=== PATIENT | female | born 1945 | race Caucasian/White ===

== ENCOUNTER → 2017-04-04 | Outpatient (REF) | payer MEDICARE ==
[~2017-04-04] MED LIST: ALLO100T PO; BENI40TA28 PO; DEXA4TA PO; FEXO180T58 PO; MONT10TA2 PO; OMEP20CA3 PO; ROCA0.25 PO; SIMV20TA2 PO; TIZA4CAP3 PO; VITA100067 PO
[2017-04-04 22:19] LABS: BLOOD UREA NITROGEN 41 MG/DL (7-18); CREATININE FOR GFR 1.27 MG/DL (0.55-1.02); FOLATE 9.9 NG/ML; GLOMERULAR FILTRATION RATE 44.4 (>45); T UPTAKE 37 % (30-39); THYROXINE (T4) 13.1 UG/DL (4.5-12.0); TOTAL PROTEIN 8.2 GM/DL (6.4-8.2); VITAMIN B12 LEVEL 256 PG/ML
[2017-04-06 12:15] LABS: ALBUMIN 4.44 GM/DL (3.29-5.55); ALBUMIN % 54.1 % (55.8-66.1); GAMMA GLOBULIN % 17.7 % (11.1-18.8)
[2017-04-08 14:17] LABS: SJOGREN'S ANTI SS-A >8.0 AI (0.0-0.9); SJOGREN'S ANTI SS-B >8.0 AI (0.0-0.9); VITAMIN E LEVEL 13.6 mg/L (6.5-21.5)
== END ==
LOC: M LABNEURO 13:46
PROVIDERS: ATTEND Psychiatry & Neurology Neurology
DX: I10 Essential (primary) hypertension (principal); R20.9 Unspecified disturbances of skin sensation; E11.9 Type 2 diabetes mellitus without complications

== ENCOUNTER 2017-06-06 08:42 | Inpatient (IN) | payer MEDICARE, BC, OTHER ==
[2017-05-17 11:38] VITALS: BP 142/80
--- NOTE | 2017-05-26 10:17 | HPE ---
DATE OF PROPOSED ADMISSION: 06/06/2017 CHIEF COMPLAINT: Numbness and weakness in her left upper extremity. Minimal neck pain. ATTENDING PHYSICIAN: Dr. Lucas. HISTORY: This is a pleasant 71-year-old female patient with progressively worsening numbness and weakness in her left upper extremity to include balance difficulties and difficulties with normal day-to-day activities. She feels her symptoms started about 5 months ago and failed to improve with conservative management. She was noted to have severe spinal stenosis and myelomalacia on her cervical MRI. It was recommended that she undergo a posterior cervical decompression and fusion from C3-C6 by Dr. Lucas. Her spinal stenosis on her MRI was most notable from C3 down to C6. X-rays notable for multilevel degenerative changes most significantly from C3-C6. There is a very minimal anterolisthesis at C5-6. She has elected for surgery for continued symptoms. Dr. Lucas consented her for a posterior cervical decompression and fusion C3-C6. Medical optimization by Mr. Hughes, that is not present for review. ALLERGIES: TYLENOL WITH CODEINE that causes her nausea and vomiting. MEDICAL HISTORY: Includes: Cervical spinal stenosis. Stage III kidney failure. Gout. Elevated cholesterol. Mild mental retardation. Gastric reflux disease. Hypertension. CURRENT MEDICATIONS: - dexamethasone 4 mg one tablet three times a day - tizanidine 4 mg one tablet up to four times a day as needed - Prilosec 20 mg one tablet once per day - Benicar 40/12.5 mg one tablet once per day - calcitriol 0.25 mcg one tablet once per day - fexofenadine 180 mg one tablet once per day - allopurinol 100 mg one tablet every day - montelukast 10 mg one tablet once per day - Zocor 20 mg one tablet at bedtime SOCIAL HISTORY: She does not smoke. She does not use alcohol. She is disabled. FAMILY HISTORY: Noncontributory. REVIEW OF SYSTEMS: Denies any current fevers or chills. Denies chest pain, shortness breath or cough. Denies difficulty breathing. Denies abdominal pain. Denies nausea or vomiting. Notes persistent weakness in her left upper extremity, difficulty with any use of her left upper extremity, numbness down her left upper extremity into her left hand. Very minimal neck pain. Also notes balance difficulties and notes she is dropping items. Denies any recent upper respiratory infection (URI) or urinary tract infection (UTI) symptoms. Exam today reveals alert well-nourished, well-developed female patient who holds her left arm in a sort of flexed external rotated position. There is very limited motion of the left upper extremity. Her gait is not wide-based though she does struggle with tandem walking on exam. Her mood and affect are appropriate for the situation. She does grimace getting on and off the exam table. Spurling's is negative on exam. There is some very minimal tenderness at the base of the cervical spine but otherwise the skin is intact. No erythema, edema or ecchymosis. Deep tendon reflexes are 1 at the biceps bilaterally, 3 at the triceps bilaterally, 3 bilaterally at the knees, 2 at the ankles bilaterally. There is four beats of clonus on the left, two beats of clonus on the right. Positive Karen's on the left upper extremity. There is decreased light touch along the dorsum of the left hand to include all the fingers of the hand. There is also decreased light touch along the volar aspect of the forearm. Lungs are clear to auscultation without rales or wheeze. Heart: Regular rate and rhythm. Abdomen: Bowel sounds are present. Height 148 pounds, height 58 inches, temperature 96.8, blood pressure 120/78, respirations 14, pulse 64. IMPRESSION: Severe spinal stenosis of the cervical spine from C3-C6 as well as myelomalacia of the spinal cord of the cervical spine. PLAN: Dr. Lucas has her consented for posterior cervical decompression and fusion from C3-C6.
[~2017-06-06] VITALS: Ht 149.9 cm; Wt 66.2 kg
[2017-06-06] MEDS ORDERED: LR 1,000 ML IV ONE (09:00)
[2017-06-06] MEDS ORDERED: methylPREDNISolone 500 MG, VIAL MATE ADAPTER 1 EACH in D5W 250 ML IV ONE (09:00)
[2017-06-06] MEDS ORDERED: PERCOCET 5MG/325MG TAB PO ONE (09:00)
[2017-06-06] MEDS ORDERED: CelecoXIB (CeleBREX) 100 MG CAP PO ONE (09:00)
[2017-06-06] MEDS ORDERED: LIDOCAINE 1% MDV 20ML VIAL SQ PRN (09:00)
[2017-06-06] MEDS ORDERED: PROPOFOL 200 MG/20 ML VIAL As Ordered ONE (09:44)
[2017-06-06] MEDS ORDERED: fentaNYL 250 MCG/5 ML INJECTION (J3010) As Ordered ONE (09:44)
[2017-06-06] MEDS ORDERED: MIDAZOLAM INJ 2 MG/2 ML VIAL (J2250) As Ordered ONE (09:44)
[2017-06-06] MEDS ORDERED: dexameTHASONE 4 MG/ML 1ML VIAL (J1100) As Ordered ONE (09:44)
[2017-06-06] MEDS ORDERED: ROCURONIUM BROMIDE 50 MG/5 ML VIAL As Ordered ONE ×2 (09:44→13:52)
[2017-06-06] MEDS ORDERED: LIDOCAINE 2% INJ 100 MG/5 ML SDV (FOR ANES.) As Ordered ONE (09:44)
[2017-06-06] MEDS ORDERED: ceFAZolin 2 GM/D5W 50 ML IV BAG (J0690 PER 500MG) As Ordered ONE ×2 (11:17→15:27)
[2017-06-06] MEDS ORDERED: HYDROCORTISONE 100 MG/2 ML VIAL (J1720) As Ordered ONE (11:36)
[2017-06-06] MEDS ORDERED: BUPIVACAINE HCL 0.5% 10 ML VIAL As Ordered ONE (11:46)
[2017-06-06] MEDS ORDERED: THROMBIN SOLN 20,000 UNITS KIT As Ordered ONE (11:46)
[2017-06-06] MEDS ORDERED: BUPIVACAINE/EPIN 0.25% 30 ML VIAL As Ordered ONE (11:46)
[2017-06-06] MEDS ORDERED: VANCOMYCIN HCL 500 MG/10 ML VIAL (J3370) As Ordered ONE (11:46)
[2017-06-06] MEDS ORDERED: BACITRACIN PWD 50,000 UNITS VIAL As Ordered ONE ×2 (11:47→16:20)
[2017-06-06] MEDS ORDERED: BUPIVACAINE LIPOSOME/PF 1.3% 20 ML VIAL (13.3MG/ML)(EXPAREL) As Ordered ONE (11:47)
[2017-06-06] MEDS ORDERED: ePHEDrine SULFATE 25 MG/5 ML(5MG/ML) SYRINGE As Ordered ONE ×2 (13:43→15:46)
[2017-06-06] MEDS ORDERED: ONDANSETRON 4MG/2ML VIAL (J2405) As Ordered ONE ×2 (14:40→19:37)
[2017-06-06] MEDS ORDERED: HYDROmorphone HCL 2 MG/ML 1ML VIAL (J1170) As Ordered ONE (14:40)
[2017-06-06] MEDS ORDERED: GLYCOPYRROLATE INJ 0.2 MG/ML 2 ML VIAL As Ordered ONE (14:47)
[2017-06-06] MEDS ORDERED: NEOSTIGMINE 10 MG/10 ML VIAL (J2710) As Ordered ONE (14:47)
[2017-06-06] MEDS ORDERED: PHENYLEPHRINE INJ 10MG/ML VIAL (J2370) As Ordered ONE (14:59)
--- NOTE | 2017-06-06 17:23 | REP ---
Cervical spine series: Limited study two views. History: Intraoperative films. 10 seconds of fluoroscopy time is reported. Findings: A sequence of two last image hold fluoroscopic spot radiographs of the cervical spine are presented. The patient is status post posterior element fusion from C3 through C6 bilaterally. Laminectomies have apparently been performed at these levels as well. Signed by Jose Guadalupe León MD 06/07/2017 11:17 A
[2017-06-06] MEDS ORDERED: HYDROmorphone HCL 1 MG/ML SYRINGE (J1170) IV PRN ×3 (18:30)
[2017-06-06] MEDS ORDERED: LR 1,000 ML IV SCH (18:30)
[2017-06-06] MEDS ORDERED: ACETAMINOPHEN TAB 650MG DOSE (2X325MG) PO PRN (18:30)
[2017-06-06] MEDS ORDERED: fentaNYL 100 MCG/2 ML INJECTION (J3010) IV PRN (18:30)
[2017-06-06] MEDS ORDERED: ONDANSETRON 4MG/2ML VIAL (J2405) IV PRN (18:30)
[2017-06-06] MEDS ORDERED: PERCOCET 5MG/325MG TAB PO PRN ×2 (18:30)
[2017-06-06] MEDS ORDERED: tiZANidine 4 MG TAB PO PRN (18:30)
[2017-06-06] MEDS ORDERED: METOCLOPRAMIDE INJ 10MG/2ML VIAL (J2765) IV PRN (18:30)
[2017-06-06] MEDS ORDERED: METOCLOPRAMIDE INJ 10MG/2ML VIAL (J2765) As Ordered ONE (19:42)
[2017-06-06 20:30] VITALS: BP 161/74
[2017-06-06 21:00] VITALS: BP 121/69
[2017-06-06 22:00] VITALS: BP 120/90
[2017-06-06] MEDS: SIMVASTATIN 20 MG TAB PO SCH (22:08)
[2017-06-06] MEDS: GABAPENTIN 100 MG CAP PO SCH (22:08)
[2017-06-06] MEDS: MONTELUKAST 10 MG TAB PO SCH (22:08)
[2017-06-06] MEDS: D5W/LR 1,000 ML IV SCH (22:09)
[2017-06-06 23:00] VITALS: BP 120/66
[2017-06-07] VITALS: BP 136/70
[2017-06-07] MEDS: PERCOCET 5MG/325MG TAB PO PRN ×4 (00:06→23:28)
[2017-06-07 01:00] VITALS: BP 130/68
[2017-06-07 06:00] VITALS: BP 134/64
[2017-06-07] MEDS: D5W/LR 1,000 ML IV SCH ×2 (06:51→13:43)
[2017-06-07] MEDS: FEXOFENADINE 60 MG TAB PO SCH (08:44)
[2017-06-07] MEDS: METAMUCIL (PSYLLIUM) PACKET PO SCH (08:44)
[2017-06-07] MEDS: hydroCHLOROthiazide 12.5 MG CAPSULE PO SCH (08:45)
[2017-06-07] MEDS: OLMESARTAN MEDOXOMIL 20 MG TAB (BENICAR) PO SCH (08:45)
[2017-06-07] MEDS: GABAPENTIN 100 MG CAP PO SCH ×3 (08:45→20:07)
[2017-06-07] MEDS: ALLOPURINOL 100 MG TAB PO SCH (08:46)
[2017-06-07] MEDS: OMEPRAZOLE 20 MG CAP PO SCH (08:46)
[2017-06-07 10:00] VITALS: BP 129/66
[2017-06-07 14:00] VITALS: BP 130/60
[2017-06-07] MEDS: MONTELUKAST 10 MG TAB PO SCH (20:07)
[2017-06-07] MEDS: SIMVASTATIN 20 MG TAB PO SCH (20:07)
[2017-06-07 22:00] VITALS: BP 160/79
--- NOTE | 2017-06-07 23:28 | RO ---
DATE OF PROCEDURE: 06/06/2017 PREOPERATIVE DIAGNOSIS: Cervical spinal stenosis with myelopathy. POSTOPERATIVE DIAGNOSIS: Cervical spinal stenosis with myelopathy. OPERATIVE PROCEDURE: Cervical laminectomy and fusion posterior C3-C6. Specific portions of the procedure as follows: C3 laminectomy for decompression of the thecal sac and nerve roots, C4 laminectomy additional level, C5 laminectomy additional level, C6 laminectomy additional level, posterior fusion C3-4, posterior fusion C4-5 additional level, posterior fusion C5-6 additional level, posterior segmental instrumentation C3, C4, C5 and C6, harvest of local autograft for spine surgery, application removal of [place] tongs for cervical positioning for posterior cervical spine surgery. SURGEON: Dr. Vinny Lucas HIGHWAY RESEARCH ENGINEER: Guillermo Chacko PA-C ANESTHESIA: General endotracheal. ESTIMATED BLOOD LOSS: 200 mL REPLACED: With crystalloid. COMPLICATIONS: None. COMPONENTS USED: K2M lateral mass screw fixation system/screws and the appropriate connecting rich hardware and end caps. INDICATION FOR SURGERY: Cervical myelopathy, gait disorder and left upper extremity neuropathic pain. Consent reviewed in detail with the patient as well as relatives. The consent had involved a sam discussion of the pathology involved, the procedure proposed, alternatives including doing nothing, risks including but not limited to pain, failure, incomplete relief, need for additional surgery, paralysis, , infection and failure to improve symptoms, specifically. The patient agrees to proceed with surgery. OPERATIVE COURSE: Identified in the holding area, site, side verified; brought to the operating room. Once general endotracheal anesthesia was administered, Mr. Chacko and Wanda prepped the patient's head for application of the [place] tongs. We utilized the radiolucent [place] tongs and the Robert table Escobedo tongs system. The [place] tongs were applied to approximately 50 pound pressure on the [place] tong tensioning device. The pair of pins placed on the patient's left side, single pin placed on the patient's right side at the appropriate bony landmarks. Next, once the [place] tongs were secured Mr. Chacko and Wanda participated in the flip procedure to the Robert frame. I controlled the head while OR personnel and Mr. Chacko assisted with the flip. The patient was flipped from the supine to the prone position on the [place] frame. While the patient's positioning was adjusted by Mr. Chacko I held the patient's neck in neutral position and we secured the patient's [place] tongs to the Robert frame. We then further adjusted positioning of the patient's arms and taped the shoulders at the side carefully. Finally once positioning is complete, we paused to time-out and verified garcia points in positioning. Next, we brought in the C-arm and verified positioning with the lateral fluoroscopy. The patient was appropriately lordotic and not excessively flexed or hyperextended. Next, the patient had a preoperative dose of the methylprednisolone as well as antibiotic. Next, the patient's posterior cervical spine was prepared by removing some hair from the posterior aspect of the occiput. Next, once I and the senior specialist were comfortable with the patient's positioning, she was then sterilely prepped and draped for in the usual fashion for exposure of the posterior cervical spine for decompressive laminectomy. Next, once this was accomplished we began the procedure. Initially I stood on the patient's right, Mr. Chacko on the patient's left. The incision was outlined with a marking pen based on palpation of the spinous processes and infiltrated with 0.25% Marcaine with epinephrine. I utilized headlamp and 3.5 loupe magnification for the procedure. Next, the incision was made with a #10 blade knife developed down through skin and subcuticular tissues while in the nuchal fascia. The dissection continued to the posterior aspect of the spinous processes of C5, C6 and C7 which were exposed. Next, we obtained a cross-table lateral cervical image to verify our level at above and below cranial and caudal to the spinous processes C6. Next, once this was accomplished I marked the spinous process of C7 as the inferior-most aspect of the incision using Leksell/Franklin-Levy. I then continued the dissection exposing along the spinal lamina of C6 and working cranially through the lamina of C3. This was accomplished on the patient's left side, then I switched sides and accomplished the same dissection on the patient's right side. Mr. Chacko utilizing bipolar cautery while I did the dissection to maintain hemostasis. Next, ____CUT OFF!!!!!!!!!!!
[2017-06-08 06:00] VITALS: BP 152/81
[2017-06-08] MEDS: PERCOCET 5MG/325MG TAB PO PRN (06:57)
[2017-06-08] MEDS: FEXOFENADINE 60 MG TAB PO SCH (09:07)
[2017-06-08] MEDS: METAMUCIL (PSYLLIUM) PACKET PO SCH (09:07)
[2017-06-08 09:08] VITALS: BP 152/81
[2017-06-08] MEDS: hydroCHLOROthiazide 12.5 MG CAPSULE PO SCH (09:08)
[2017-06-08] MEDS: ALLOPURINOL 100 MG TAB PO SCH (09:08)
[2017-06-08] MEDS: GABAPENTIN 100 MG CAP PO SCH (09:08)
[2017-06-08] MEDS: OMEPRAZOLE 20 MG CAP PO SCH (09:08)
[2017-06-08] MEDS: OLMESARTAN MEDOXOMIL 20 MG TAB (BENICAR) PO SCH (09:08)
--- NOTE | 2017-06-15 17:30 | DSES ---
DATE OF ADMISSION: 06/06/2017 DATE OF DISCHARGE: 06/08/2017 CHIEF COMPLAINT: Left upper extremity numbness and weakness with minimal neck pain. OTHER DIAGNOSES: 1. Stage III kidney disease. 2. Gout. 3. Hyperlipidemia. 4. Gastroesophageal reflux disease. 5. Hypertension. 6. Mild mental retardation. DISCHARGE DIAGNOSIS: Left upper extremity numbness and tingling, status post cervical laminectomy and fusion procedure. HISTORY: Patient is a 71-year-old female with progressively worsening numbness, tingling, and weakness in her left upper extremity. It is causing her balance difficulties and difficulties with activities of daily living. Symptoms started approximately 5 months ago and failed to improve with conservative management. She was noted to have severe spinal stenosis and myelomalacia on her cervical MRI. She consented for an elective posterior cervical decompression and fusion with Dr. Lucas. OPERATION PERFORMED: Cervical laminectomy and fusion posteriorly from C3-6. HOSPITAL COURSE: The patient underwent a posterior cervical laminectomy and fusion from C3-6 for cervical spinal stenosis and myelopathy. Surgery was under general anesthesia and was without complication. Patient's hospital course was uneventful. She was discharged on oral pain medications and will resume her preoperative medications and diet. She will wear her cervical collar as recommended and use her thromboembolic deterrent (FINA) stockings for 30 days postoperatively for deep vein thrombosis. Patient will followup in our office in approximately 3 days for wound check. She is encouraged to contact our office sooner if there is any increased pain, redness, drainage, fever greater than 101 degrees, bilateral upper extremity symptoms, or any other concerns. Please see medical record for additional details. CECI
== END 2017-06-08 11:29 | DRG 472 ==
LOC: M OR 08:42 → M MS5PR 20:10
PROVIDERS: ADMIT Orthopaedic Surgery; ATTEND Orthopaedic Surgery
PROC: 0RG Upper Joints, Fusion (ICD-10-PCS; principal; 2017-06-06 12:07)
DX: M48.02 Spinal stenosis, cervical region (principal); G95.89 Other specified diseases of spinal cord; N18.3 Chronic kidney disease, stage 3 (moderate); M10.9 Gout, unspecified; R26.89 Other abnormalities of gait and mobility; J30.9 Allergic rhinitis, unspecified; E53.8 Deficiency of other specified B group vitamins; M54.5 Low back pain; E78.00 Pure hypercholesterolemia, unspecified; F70 Mild intellectual disabilities; K21.9 Gastro-esophageal reflux disease without esophagitis; I12.9 Hypertensive chronic kidney disease with stage 1 through stage 4 chronic kidney disease, or unspecified chronic kidney disease; Z79.899 Other long term (current) drug therapy

== ENCOUNTER 2017-06-08 10:52 | Inpatient (IN) | payer MEDICARE, BC, OTHER ==
[~2017-06-08] VITALS: Ht 149.9 cm; Wt 67.8 kg
[2017-06-08 12:00] VITALS: BP 127/88
--- NOTE | 2017-06-08 12:50 | CR.PDOC ---
[facility] Consultation Consultation CONSULTATION REPORT FOR: Dr Mcgill REASON FOR CONSULTATION: Medical Management DATE OF VISIT: 06/08/17 ATTENDING: Dr. Marv Mendez PCP: Sana SINCLAIR HPI: 71year oldF with h/o cervical stenosis, S/P Cervical decompression surgery 06/06/[address] Lucas, orthopedic surgery. Pt is transferred 06/08/17 to the care of Dr Nikhil LAND. No acute medical complaints today. Pt states pain is controlled. Denies any fevers, chills, weakness, fatigue, Headache, Chest Pain, Shortness of breath, cough, palpitations, abdominal pain, N/V/D or changes in bowel or bladder habits. PMHx: cervical stenosis chronic pain/chronic neck pain HTN GERD Allergic rhinitis Gout Asthma CKD3 Mild MR HLD PSHX: Cervical decompression surgery 06/06/17, Dr Lucas. SOCHX: Resides in: [place] Marital Status: single Employment: disabled Tobacco use: denies ETOH: denies Illicit Drugs: Denies ROS: As noted in HPI, otherwise 11pt ROS of systems reviewed and unremarkable. PE: GEN: 71yoF, appears stated age. Well-nourished, well developed. No acute distress. Alert and oriented x 3. Pleasant, interactive. HEENT: Normocephalic, atraumatic. Sclera are nonicteric. Conjunctiva without injection. Nose midline. No facial asymmetry. Moist mucous membranes. Pharynx pink and moist. CHEST: Regular rate and rhythm, +S1, +S2 LUNGS: Clear to auscultation bilaterally. No wheezes, rales, or rhonchi. Breathing appears symmetric and easy. Patient is speaking in full sentences. No accessory muscle use. ABD: Round, soft, non-tender, non-distended. +Bowel sounds throughout. No rebound or guarding. EXT: Pulses 2+ bilaterally dorsalis pedis and radial. No lower extremity edema appreciated. SKIN: [place], dry, warm. No rashes. NEURO: Pt wearing [place] cervical collar. A&P: 71year oldF with h/o cervical stenosis, S/P Cervical decompression surgery 06/06/[address] Lucas, orthopedic surgery. Pt is transferred 06/08/17 to the care of EMERY, Dr Mcgill. 1. Cervical stenosis/Cervical decompression surgery 06/06/[address] Lucas. Mgmt as per Orthopedic surgery. PT/OT as per Dr Nikhil LAND. Pain control as per Dr Nikhil LAND. Bowel care as per Dr Nikhil LAND. DVT prophylaxis. As per Dr Nikhil LAND. 2. HTN. HCTZ 12.5 mg daily. CMP pending. Benicar is on hold at this time. Monitor BP, may need to add back ARB. 3. GERD. Continue PPI. 4. Allergic rhinitis. Chloe/Singulair. 5. CKD3. Baseline appears to be 1.2-1.3. CMP pending. Monitor. 6. Mild MR. Continue supportive care. 7. Gout. Continue Allopurinol. 8. HLD. Continue Zocor. Thank you for your consultation. We will continue to follow along with you. Vital Signs/I&O pending Laboratory Data Labs 24H CBC/CMP/UA pending. Allergies Coded Allergies: Codeine (Verified Adverse Reaction, Mild, n/v, 06/06/17) Home Medications Scheduled (Benicar Hct 40-12.5 mg) 1 Tab Tab, 1 TAB PO DAILY, (Reported) Allopurinol (Allopurinol) 100 Mg Tab, 100 MG PO DAILY, (Reported) Calcitriol (Rocaltrol) 0.25 Mcg Cap, 0.25 MCG PO DAILY, (Reported) Dexamethasone (Dexamethasone) 4 Mg Tab, 4 MG PO Q8H, (Reported) 7-3-11 Fexofenadine Hydrochloride (Fexofenadine HCl) 180 Mg Tab, 180 MG PO DAILY, ( Reported) Montelukast Sodium (Montelukast Sodium) 10 Mg Tab, 10 MG PO QPM, (Reported) Omeprazole (Omeprazole) 20 Mg Cap, 20 MG PO DAILY, (Reported) Simvastatin (Simvastatin) 20 Mg Tab, 20 MG PO QPM, (Reported) Tizanidine Hydrochloride (Tizanidine HCl) 4 Mg Cap, 4 MG PO QPM, (Reported) Vitamin D (Vitamin D) 1,000 Unit Cap, 2,000 UNIT PO DAILY, (Reported) Anna Taylor Jun 08, 2017 12:50
[2017-06-08] MEDS: METAMUCIL (PSYLLIUM) PACKET PO SCH (13:48)
[2017-06-08] MEDS: OMEPRAZOLE 20 MG CAP PO SCH (13:48)
[2017-06-08] MEDS: GABAPENTIN 100 MG CAP PO SCH ×2 (14:56→21:47)
[2017-06-08 16:00] VITALS: BP 130/81
--- NOTE | 2017-06-08 17:03 | PMRHPE ---
DATE OF ADMISSION: 06/08/2017 REASON FOR ADMISSION: Rehabilitation of incomplete quadriparesis status post decompression of C3-6 cervical levels with C3-6 cervical laminectomy and multiple-level root decompressions on 06/06/2017 for cervical spinal stenosis with myopathy. HISTORY OF PRESENT ILLNESS: Patient is a 71-year-old white female who is right-handed with mental retardation that is mild but has been developing progressive pain in the neck and down the upper extremities and weakness for 5 months. On evaluation, she was found to have cervical compression and radiculopathy and was assessed by Dr. Lucas who felt that decompressive surgery was her best option. Patient has now had the decompression surgery and fusion; however, during the time of pain, patient has had progressive problems with bladder control, having more and more retention, suggestive that she does have cervical compression in more of a central cord fashion with principal deficits in the upper extremities but some balance and bladder deficits in the lower regions. Patient does have a caregiver; however, right now while she does have good ambulation, her normal level of self-care skills are markedly reduced, and patient had participated in physical and occupational therapy evaluations and shows good motivation and willingness to participate in acute intensive rehabilitation and was admitted today to the acute rehabilitation unit for neurorehabilitation of cervical cord injury. PAST MEDICAL HISTORY: Includes: 1. Cervical stenosis. 2. Stage III chronic kidney disease. 3. Gout. 4. Dyslipidemia. 5. Mild mental retardation. 6. Gastric reflux disease. 7. Hypertension. ALLERGIES: She has medication reactions to TYLENOL WITH CODEINE, causing nausea and vomiting but no rash, shortness of breath, or swelling. No other medication adverse reactions or allergic responses to medications or other substances are known for this patient. SOCIAL HISTORY: Patient living with caregiver. Was fairly independent in her basic activities of daily living (ADLs) and mobility and recreationally liked to go bowling. She does not smoke. She does not drink alcohol. Due to mental deficits is disabled. FAMILY HISTORY: Involves no related illnesses. MEDICATIONS ON ADMISSION TO THE REHABILITATION UNIT: - allopurinol 100 mg daily for gout prevention - Chloe 180 mg daily for allergies to environmental allergens - hydrochlorothiazide 12.5 mg daily for hypertension and fluid control - Singulair 10 mg at bedtime for asthma - simvastatin 20 mg at bedtime for cholesterol control - gabapentin 100 mg every 8 hours for neurogenic pain - tizanidine 4 mg every 6 hours as needed for spasms - Dulcolax 5 mg tablet daily as needed for constipation. Patient without bowel movements since admission, though this is day 3. - Tylenol 650 mg every 6 hours as needed for pain or fever - oxycodone 5 mg every 4 hours as needed moderate to severe pain - omeprazole 20 mg by mouth daily for gastroesophageal reflux disease (GERD) - Metamucil one packet daily for bowel management REVIEW OF SYSTEMS: Notable for some mild numbness, greater on the left than the right, and weakness in the upper extremities, greater on the left than the right. Also for the urinary retention and current constipation; otherwise negative. PHYSICAL EXAMINATION: GENERAL: Short, obese, [id number] white female who looks slightly younger than stated age of 71. Patient 4 feet 11 inches and 66.2 kg. VITAL SIGNS: Temperature is 98.2, blood pressure 127/88, pulse 65, respirations 18, and pulse oximetry is 96% on room air. HEENT: Normocephalic, atraumatic. Pupils are equal, round, and reactive to light and accommodation. Face shows normal symmetry. Nares are patent. Hearing is good. No dysarthria on speech. NECK: In an [place] cervical collar, showing no significant distress at this time. LUNGS: Clear in all lui to auscultation. CORONARY: Shows a regular rate and rhythm with normal S1, S2 and 2/4 radial pulses. ABDOMEN: Obese with bowel sounds present in all quadrants No palpable tenderness or masses. EXTREMITIES: With functional range of motion in bilateral upper and lower extremities. NEUROLOGIC: Patient is alert and oriented to self, place, and in general time and situation, though she has a somewhat childlike and concrete demeanor and speech pattern. She is pleasant and cooperative. Memory was not tested. Motor shows 3-3+/5 bilateral upper extremities and 4-5/5 in the lower extremities. Patient with decreased light touch in bilateral upper extremities. Seems to be intact in the lower extremities. Tone is within normal limits in bilateral upper and lower extremities. LABORATORY DATA: Has not been completed. Further testing tomorrow with CBC with differential and comprehensive metabolic panel. ASSESSMENT/PLAN: 1. Rehabilitation of what appears to be a fairly incomplete and more of a central cord pattern, C4 quadriparesis with very little involvement in the lower extremities; however, patient clearly having urinary retention problems, as she is able to start urination but is unable to get out the last 400 mL this evening. Also, this explained some of the patient's previously noted balance and ambulation problems. I feel patient needs neuromuscular facilitation of bilateral upper extremities along with balance training, overall endurance and mobility training, but most importantly focus on ADLs and possible use of adaptive garments and equipment to perform ADLs. At this time I do not feel speech language pathology evaluation is needed; however, we will assess patient team-woodall, and further evaluation of speech needs will be considered going forward. Patient needs to be at least minimal assist to standby for return to home with her caregiver. I am anticipating patient will require about 14 days to achieve that. 2. Cervical wound healing. At this time patient is doing well. Will continue with cervical collar, and I have consulted orthopedics to help with ongoing care. Will keep the collar on at all times except when supported in bed to allow some cleaning of the neck and pads of the collar. 3. Spasms secondary to spinal cord. Patient will continue on the as-needed Zanaflex. 4. Deep vein thrombosis (DVT) prophylaxis. Will go ahead with thromboembolic deterrent (FINA) hose and sequential compression stockings and try and keep patient hydrated. Consideration of aspirin versus other anticoagulants will be considered with discussion of orthopedics. 5. Atherosclerotic cardiovascular disease, including hypertension and hyperlipidemia. At this time will continue with simvastatin, hydrochlorothiazide. Return of patient to using her previous medications will be considered. Hospitalist consult has been sent to assist in this and other medical problems. 6. Asthma. Patient will on the Singulair. We will observe respiratory status. Oxygen has been ordered, but principally at this point patient seems to be doing well, and focus will be on pulmonary hygiene, including using incentive spirometry. POSTADMISSION PHYSICIAN EVALUATION: I feel patient is consistent with chart review and preadmission screening and does have a number of problems, including the urinary retention, and may require medication such as an alpha olga to assist with that, but for now will try to do more mechanical-type training or consider possible use of Urecholine, which is often very helpful for impaired bowel and bladder function in this type of patient. I do feel patient is highly motivated to participate in and will, I believe, benefit from therapy, especially in light of decompression, and I anticipate her returning to her prior community living situation with caregiver. Her prognosis is fair to good. Estimated length of stay is 14 days. Time spent on chart review, history and physical, and documentation is greater than 70 minutes.
[2017-06-08] MEDS: oxyCODONE 5MG TAB PO PRN (17:53)
[2017-06-08 21:00] VITALS: BP 142/70
[2017-06-08] MEDS: MONTELUKAST 10 MG TAB PO SCH (21:47)
[2017-06-08] MEDS: SIMVASTATIN 20 MG TAB PO SCH (21:47)
[2017-06-09 06:00] VITALS: BP 126/64
[2017-06-09] MEDS: GABAPENTIN 100 MG CAP PO SCH ×3 (06:13→21:17)
[2017-06-09 08:29] LABS: BASO % 0.3 % (0.0-1.0); EOS % 0.6 % (0.0-3.0); IMMATURE GRANULOCYTE % 2.3 % (0-0); LYMPH # 0.7 10^3/uL (1.5-4.5); LYMPH % 9.5 % (24.0-44.0); MEAN CORPUSCULAR HEMOGLOBIN 29.6 pg (27.0-33.0); MEAN CORPUSCULAR HGB CONC 32.8 g/dl (32.0-36.5); MEAN CORPUSCULAR VOLUME 90.2 fl (80.0-96.0); MONO # 0.4 10^3/uL (0.0-0.8); MONO % 5.2 % (0.0-5.0); NEUTROPHILS # 5.7 10^3/uL (1.8-7.7); NEUTROPHILS % 82.1 % (36.0-66.0); PLATELET COUNT, AUTOMATED 191 10^3/uL (150-450); RED CELL DISTRIBUTION WIDTH 13.9 % (11.5-14.5)
[2017-06-09 08:50] LABS: ALBUMIN 1.9 GM/DL (3.2-5.2); ALBUMIN/GLOBULIN RATIO 0.61 (1.00-1.93); ALKALINE PHOSPHATASE 35 U/L (45-117); ALT/SGPT 12 U/L (12-78); ANION GAP 6 MEQ/L (8-16); AST/SGOT 18 U/L (7-37); BILIRUBIN,TOTAL 0.4 MG/DL (0.2-1.0); BLOOD UREA NITROGEN 21 MG/DL (7-18); CARBON DIOXIDE LEVEL 31 MEQ/L (21-32); CHLORIDE LEVEL 103 MEQ/L (98-107); CREATININE FOR GFR 0.76 MG/DL (0.55-1.02); GLOMERULAR FILTRATION RATE > 60.0 (>45); GLUCOSE, FASTING 80 MG/DL (80-110); POTASSIUM SERUM 3.5 MEQ/L (3.5-5.1); SODIUM LEVEL 140 MEQ/L (136-145)
[2017-06-09] MEDS: FEXOFENADINE 60 MG TAB PO SCH (08:53)
[2017-06-09] MEDS: OMEPRAZOLE 20 MG CAP PO SCH (08:53)
[2017-06-09] MEDS: hydroCHLOROthiazide 12.5 MG CAPSULE PO SCH (08:53)
[2017-06-09] MEDS: METAMUCIL (PSYLLIUM) PACKET PO SCH (08:53)
[2017-06-09] MEDS: ALLOPURINOL 100 MG TAB PO SCH (08:53)
[2017-06-09] MEDS: ACETAMINOPHEN TAB 650MG DOSE (2X325MG) PO PRN (09:53)
[2017-06-09] MEDS: oxyCODONE 5MG TAB PO PRN (12:11)
--- NOTE | 2017-06-09 13:33 | IPNPDOC ---
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 On evaluation, she was found to have cervical compression and radiculopathy and was assessed by Dr. Lucas who felt that decompressive surgery was her best option. Patient has now had the decompression surgery and fusion; however, during the time of pain, patient has had progressive problems with bladder control, having more and more retention, suggestive that she does have cervical compression in more of a central cord fashion with principal deficits in the upper extremities but some balance and bladder deficits in the lower regions. Patient notes sleeping well last night and not having a significant pain at this time. Patient with no bowel movements 5 days, so we will try encourage that this evening. ALLERGIES: See Below MEDICATIONS: Reviewed, see below. OBJECTIVE: VITAL SIGNS: Please see below. PHYSICAL EXAMINATION: GENERAL: Short obese middle-aged white female who looks slightly less than stated age of 71. Patient is pleasant cooperative and in good spirits. She is oriented to self, place and general time and situation. HEENT: Normocephalic/atraumatic. CARDIOVASCULAR: Regular rate and rhythm with normal S1 and S2. 2/4 bilateral radial pulses. LUNGS: All lui clear to auscultation. ABDOMEN: I'm with normal bowel sounds in all quadrants. NEUROLOGICAL: Diminished sensorimotor function of bilateral upper extremity left more than right. SKIN: Posterior cervical incision under dressing without significant drainage or a signs of inflammation. LABORATORY DATA: Reviewed. Please see below. MICROBIOLOGY: Please see below. IMAGING: No new imaging. DVT prophylaxis ordered?: FINA hose and sequential compression stockings. ASSESSMENT AND PLAN: 1. Rehabilitation of approximately C4 central cord syndrome: Patient with radicular elements but principally involvement of bilateral upper extremity but also secondary GI/ effects. I will go ahead and worked is improve bowel and bladder function along with the team working on neuromuscular facilitation of bilateral upper extremities and overall balance, endurance, ADL training. 2. Constipation: Will use milk of magnesia and do blocks but also start Urecholine. 3. Anemia: Patient with moderate anemia with H&H of 10.0 and 30.5% today on 06/09. We will continue to follow this along with heart rate and blood pressure. 4. Nutrition: Albumin is severely low at 1.9. Need to focus on maintaining good nutrition and trying to improve patient's protein stores. TIME SPENT: Chart Review, examination and documentation require greater than 25 minutes. Allergies Coded Allergies: Codeine (Verified Adverse Reaction, Mild, n/v, 06/06/17) Vital Signs Vital Signs Date Time Temp Pulse Resp B/P (MAP) Pulse Ox O2 Delivery O2 Flow Rate FiO2 06/09/17 12:41 18 06/09/17 12:11 Room Air 06/09/17 06:00 97.2 88 126/64 (84) 98 Laboratory Data CBC/BMP Laboratory Tests 06/09/17 07:57 Red Blood Count 3.38 L, Mean Corpuscular Volume 90.2, Mean Corpuscular Hemoglobin 29.6, Mean Corpuscular Hemoglobin Concent 32.8, Red Cell Distribution Width 13.9, Neutrophils (%) (Auto) 82.1 H, Lymphocytes (%) (Auto) 9.5 L, Monocytes (%) (Auto) 5.2 H, Eosinophils (%) (Auto) 0.6, Basophils (%) ( Auto) 0.3, Neutrophils # (Auto) 5.7, Lymphocytes # (Auto) 0.7 L, Monocytes # ( Auto) 0.4, Eosinophils # (Auto) 0.0, Basophils # (Auto) 0.0, Calcium Level 8.0 L , Aspartate Amino Transf (AST/SGOT) 18, Alanine Aminotransferase (ALT/SGPT) 12, Alkaline Phosphatase 35 L, Total Bilirubin 0.4, Total Protein 5.0 L, Albumin 1.9 L Labs 24H Laboratory Tests 2 06/08/17 16:27: Urine Appearance CLEAR, Urine Color YELLOW, Urine pH 6.0, Urine Specific [place] 1.011, Urine Protein NEGATIVE, Urine Glucose (UA) NEGATIVE, Urine Ketones NEGATIVE, Urine Urobilinogen 0.2, Urine Bilirubin NEGATIVE, Urine Leukocyte Esterase NEGATIVE, Urine Blood NEGATIVE, Urine Nitrite NEGATIVE, Urine WBC (Auto) 0, Urine RBC (Auto) 0, Urine Hyaline Casts (Auto) 0, Urine Bacteria (Auto) NEGATIVE, Urine Squamous Epithelial Cells 0, Urine Sperm (Auto) 06/09/17 07:57: Immature Granulocyte % (Auto) 2.3H, White Blood Count 7.0, Red Blood Count 3.38L , Hemoglobin 10.0L, Hematocrit 30.5L, Mean Corpuscular Volume 90.2, Mean Corpuscular Hemoglobin 29.6, Mean Corpuscular Hemoglobin Concent 32.8, Red Cell Distribution Width 13.9, Platelet Count 191, Neutrophils (%) (Auto) 82.1H, Lymphocytes (%) (Auto) 9.5L, Monocytes (%) (Auto) 5.2H, Eosinophils (%) (Auto) 0.6, Basophils (%) (Auto) 0.3, Neutrophils # (Auto) 5.7, Lymphocytes # (Auto) 0.7L, Monocytes # (Auto) 0.4, Eosinophils # (Auto) 0.0, Basophils # (Auto) 0.0, Immature Granulocyte # (Auto) 0.2H, Nucleated Red Blood Cells % (auto) 0.0, Anion Gap 6L, Glomerular Filtration Rate > 60.0, Blood Urea Nitrogen 21H, Creatinine 0.76, Sodium Level 140, Potassium Level 3.5, Chloride Level 103, Carbon Dioxide Level 31, Calcium Level 8.0L, Aspartate Amino Transf (AST/SGOT) 18, Alanine Aminotransferase (ALT/SGPT) 12, Alkaline Phosphatase 35L, Total Bilirubin 0.4, Total Protein 5.0L, Albumin 1.9L, Albumin/Globulin Ratio 0.61L Current Medications Current Medications Current Medications Acetaminophen (Tylenol Tab) 650 mg Q6HP PRN PO PAIN OR FEVER Last administered on 06/09/17 09:53; Start 06/08/17 at 11:45; Stop 07/08/17 at 11:44 Allopurinol (Zyloprim) 100 mg DAILY PO Last administered on 06/09/17 08:53; Start 06/09/17 at 09:00; Stop 07/09/17 at 08:59 Bethanechol Chloride (Urecholine) 10 mg DAILY@1400 PO ; Start 06/09/17 at 14:00 ; Stop 07/09/17 at 13:59 Bisacodyl (Dulcolax Tab) 5 mg DAILYPRN PRN PO CONSTIPATION; Start 06/08/17 at 11:45; Stop 07/08/17 at 11:44 Fexofenadine HCl (Chloe) 180 mg DAILY PO Last administered on 06/09/17 08:53 ; Start 06/09/17 at 09:00; Stop 07/09/17 at 08:59 Gabapentin (Neurontin) 100 mg Q8H PO Last administered on 06/09/17 06:13; Start 06/08/17 at 14:00; Stop 07/08/17 at 13:59 Hydrochlorothiazide (Hydrodiuril) 12.5 mg DAILY PO Last administered on 08:53; Start 06/09/17 at 09:00; Stop 07/09/17 at 08:59 Magnesium Hydroxide (Milk Of Magnesia) 30 ml DAILYPRN PRN PO CONSTIPATION; Start 06/09/17 at 08:00; Stop 07/09/17 at 07:59 Montelukast Sodium (Singulair) 10 mg QHS PO Last administered on 06/08/17 21: 47; Start 06/08/17 at 21:00; Stop 07/08/17 at 20:59 Omeprazole (PriLOSEC) 20 mg DAILY PO Last administered on 06/09/17 08:53; Start 06/08/17 at 09:00; Stop 07/08/17 at 08:59 Oxycodone HCl (Roxicodone, Oxyir) 5 mg Q4HP PRN PO PAIN SCALE 6-10 Last administered on 06/09/17 12:11; Start 06/08/17 at 11:45; Stop 06/15/17 at 11: 44 Psyllium Hydrophilic Mucilloid (Metamucil) 1 pkt DAILY PO Last administered on 06/09/17 08:53; Start 06/08/17 at 09:00; Stop 07/08/17 at 08:59 Simvastatin (Zocor) 20 mg QHS PO Last administered on 06/08/17 21:47; Start 06/08/17 at 21:00; Stop 07/08/17 at 20:59 Tizanidine HCl (Zanaflex) 4 mg Q6HP PRN PO SPASMS; Start 06/08/17 at 12:00; Stop 07/08/17 at 11:59 DONY SHIELDS MD Jun 09, 2017 13:33
[2017-06-09 14:00] VITALS: BP 140/78
[2017-06-09] MEDS: tiZANidine 4 MG TAB PO PRN (14:04)
[2017-06-09] MEDS: BETHANECHOL 10 MG TAB PO SCH (14:04)
[2017-06-09] MEDS: MOM 30ML SUSPENSION UDC PO PRN (14:04)
[2017-06-09] MEDS: BISACODYL 5 MG TAB PO PRN (18:48)
[2017-06-09 20:00] VITALS: BP 133/66
[2017-06-09] MEDS: MONTELUKAST 10 MG TAB PO SCH (21:17)
[2017-06-09] MEDS: SIMVASTATIN 20 MG TAB PO SCH (21:17)
[2017-06-10] MEDS: GABAPENTIN 100 MG CAP PO SCH ×3 (06:32→22:01)
[2017-06-10 06:37] VITALS: BP 148/85
[2017-06-10] MEDS: ACETAMINOPHEN TAB 650MG DOSE (2X325MG) PO PRN (06:42)
[2017-06-10 06:46] LABS: MEAN CORPUSCULAR HGB CONC 33.2 g/dl (32.0-36.5); MEAN CORPUSCULAR VOLUME 90.3 fl (80.0-96.0); PLATELET COUNT, AUTOMATED 205 10^3/uL (150-450); RED CELL DISTRIBUTION WIDTH 13.8 % (11.5-14.5); WHITE BLOOD COUNT 6.9 10^3/uL (4.0-10.0)
[2017-06-10] MEDS: OMEPRAZOLE 20 MG CAP PO SCH (08:52)
[2017-06-10] MEDS: FEXOFENADINE 60 MG TAB PO SCH (08:53)
[2017-06-10] MEDS: hydroCHLOROthiazide 12.5 MG CAPSULE PO SCH (08:53)
[2017-06-10] MEDS: ALLOPURINOL 100 MG TAB PO SCH (08:53)
[2017-06-10] MEDS: METAMUCIL (PSYLLIUM) PACKET PO SCH (08:53)
[2017-06-10 14:00] VITALS: BP 120/70
[2017-06-10] MEDS: BETHANECHOL 10 MG TAB PO SCH (15:06)
[2017-06-10 20:00] VITALS: BP 148/81
[2017-06-10] MEDS: SIMVASTATIN 20 MG TAB PO SCH (22:01)
[2017-06-10] MEDS: MONTELUKAST 10 MG TAB PO SCH (22:02)
[2017-06-10] MEDS: tiZANidine 4 MG TAB PO PRN (22:04)
[2017-06-11 05:00] VITALS: BP 123/68
[2017-06-11] MEDS: GABAPENTIN 100 MG CAP PO SCH ×3 (05:07→21:03)
[2017-06-11] MEDS: tiZANidine 4 MG TAB PO PRN (06:10)
[2017-06-11] MEDS: METAMUCIL (PSYLLIUM) PACKET PO SCH (09:00)
[2017-06-11] MEDS: hydroCHLOROthiazide 12.5 MG CAPSULE PO SCH (09:02)
[2017-06-11] MEDS: FEXOFENADINE 60 MG TAB PO SCH (09:02)
[2017-06-11] MEDS: ALLOPURINOL 100 MG TAB PO SCH (09:02)
[2017-06-11] MEDS: OMEPRAZOLE 20 MG CAP PO SCH (09:02)
[2017-06-11] MEDS: ACETAMINOPHEN TAB 650MG DOSE (2X325MG) PO PRN (11:10)
[2017-06-11 14:00] VITALS: BP 155/75
[2017-06-11] MEDS: BETHANECHOL 10 MG TAB PO SCH (15:57)
[2017-06-11 20:00] VITALS: BP 126/70
[2017-06-11] MEDS: SIMVASTATIN 20 MG TAB PO SCH (20:18)
[2017-06-11] MEDS: MONTELUKAST 10 MG TAB PO SCH (20:18)
[2017-06-11] MEDS: oxyCODONE 5MG TAB PO PRN (23:14)
[2017-06-12 06:00] VITALS: BP 117/63
[2017-06-12] MEDS: GABAPENTIN 100 MG CAP PO SCH ×3 (06:05→21:41)
[2017-06-12 07:58] LABS: MEAN CORPUSCULAR HEMOGLOBIN 29.9 pg (27.0-33.0); MEAN CORPUSCULAR HGB CONC 32.9 g/dl (32.0-36.5); MEAN CORPUSCULAR VOLUME 90.8 fl (80.0-96.0); PLATELET COUNT, AUTOMATED 246 10^3/uL (150-450); RED CELL DISTRIBUTION WIDTH 14.2 % (11.5-14.5); WHITE BLOOD COUNT 6.4 10^3/uL (4.0-10.0)
[2017-06-12 08:14] LABS: ANION GAP 7 MEQ/L (8-16); BLOOD UREA NITROGEN 16 MG/DL (7-18); CARBON DIOXIDE LEVEL 32 MEQ/L (21-32); CHLORIDE LEVEL 103 MEQ/L (98-107); CREATININE FOR GFR 0.84 MG/DL (0.55-1.02); GLOMERULAR FILTRATION RATE > 60.0 (>45); GLUCOSE, FASTING 75 MG/DL (80-110); POTASSIUM SERUM 3.6 MEQ/L (3.5-5.1); SODIUM LEVEL 142 MEQ/L (136-145)
[2017-06-12] MEDS: OMEPRAZOLE 20 MG CAP PO SCH (09:07)
[2017-06-12] MEDS: ALLOPURINOL 100 MG TAB PO SCH (09:07)
[2017-06-12] MEDS: hydroCHLOROthiazide 12.5 MG CAPSULE PO SCH (09:07)
[2017-06-12] MEDS: FEXOFENADINE 60 MG TAB PO SCH (09:07)
[2017-06-12] MEDS: METAMUCIL (PSYLLIUM) PACKET PO SCH (09:07)
--- NOTE | 2017-06-12 11:15 | IPNPDOC ---
Date Seen The patient was seen on 06/12/17. Progress Note HPI: 71year oldF with h/o cervical stenosis, S/P Cervical decompression surgery 06/06/[address] Lucas, orthopedic surgery. Pt is transferred 06/08/17 to the care of Dr Nano LAND. No acute medical complaints today. Pt states pain is controlled. Denies any fevers, chills, weakness, fatigue, Headache, Chest Pain, Shortness of breath, cough, palpitations, abdominal pain, N/V/D or changes in bowel or bladder habits. PMHx: cervical stenosis chronic pain/chronic neck pain HTN GERD Allergic rhinitis Gout Asthma CKD3 Mild MR HLD PSHX: Cervical decompression surgery 06/06/17, Dr Lucas. PE: GEN: 71yoF, appears stated age. Well-nourished, well developed. No acute distress. Alert and oriented x 3. Pleasant, interactive. HEENT: Normocephalic, atraumatic. Sclera are nonicteric. Conjunctiva without injection. Nose midline. No facial asymmetry. Moist mucous membranes. Pharynx pink and moist. CHEST: Regular rate and rhythm, +S1, +S2 LUNGS: Clear to auscultation bilaterally. No wheezes, rales, or rhonchi. Breathing appears symmetric and easy. Patient is speaking in full sentences. No accessory muscle use. ABD: Round, soft, non-tender, non-distended. +Bowel sounds throughout. No rebound or guarding. EXT: No lower extremity edema appreciated. SKIN: [place], dry, warm. No rashes. NEURO: Pt wearing [place] cervical collar. A&P: 71year oldF with h/o cervical stenosis, S/P Cervical decompression surgery 06/06/[address] Lucas, orthopedic surgery. Pt is transferred 06/08/17 to the care of Dr Nano LAND. 1. Cervical stenosis/Cervical decompression surgery 06/06/[address] Lucas. Mgmt as per Orthopedic surgery. PT/OT as per Dr Nano LAND. Pain control as per Dr Nano LAND. Bowel care as per Dr Nano LAND. DVT prophylaxis. As per Dr Nano LAND. 2. HTN. HCTZ 12.5 mg daily. BP 117/63 Benicar is on hold at this time. Monitor BP, may need to add back ARB. 3. GERD. Continue PPI. 4. Allergic rhinitis. Chloe/Singulair. 5. CKD3. Baseline appears to be 1.2-1.3. Monitor. 6. Mild MR. Continue supportive care. 7. Gout. Continue Allopurinol. 8. HLD. Continue Zocor. VS, I&O, 24H, Fishbone Vital Signs/I&O Vital Signs Date Time Temp Pulse Resp B/P (MAP) Pulse Ox O2 Delivery O2 Flow Rate FiO2 06/12/17 06:00 97.9 76 16 117/63 (81) 95 Room Air I&O- Last 24 Hours up to 6 AM 06/13/17 06:00 Intake Total 720 ml Output Total 1100 ml Balance -380 ml Laboratory Data 24H LABS Laboratory Tests 2 06/12/17 07:26: Nucleated Red Blood Cells % (auto) 0.0, Anion Gap 7L, Glomerular Filtration Rate > 60.0, Blood Urea Nitrogen 16, Creatinine 0.84, Sodium Level 142, Potassium Level 3.6, Chloride Level 103, Carbon Dioxide Level 32, Calcium Level 8.0L CBC/BMP Laboratory Tests 06/12/17 07:26 Red Blood Count 3.38 L, Mean Corpuscular Volume 90.8, Mean Corpuscular Hemoglobin 29.9, Mean Corpuscular Hemoglobin Concent 32.9, Red Cell Distribution Width 14.2, Calcium Level 8.0 L Anna Taylor Jun 12, 2017 11:15
--- NOTE | 2017-06-12 11:45 | IPNPDOC ---
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 On evaluation, she was found to have cervical compression and radiculopathy and was assessed by Dr. Lucas who felt that decompressive surgery was her best option. Patient has now had the decompression surgery and fusion; however, during the time of pain, patient has had progressive problems with bladder control, having more and more retention, suggestive that she does have cervical compression in more of a central cord fashion with principal deficits in the upper extremities but some balance and bladder deficits in the lower regions. Patient notes sleeping well last night and not having a significant pain at this time. Patient with fine mildly pruritic rash over lower trunk with some areas on the back. Last BM Monday. Rash started this with only new medication being the Urecholine. No other complaints. ALLERGIES: See Below MEDICATIONS: Reviewed, see below. OBJECTIVE: VITAL SIGNS: Please see below. PHYSICAL EXAMINATION: GENERAL: Short obese middle-aged white female who looks slightly less than stated age of 71. Patient is pleasant cooperative and in good spirits. She is oriented to self, place and general time and situation. HEENT: Normocephalic/atraumatic. CARDIOVASCULAR: Regular rate and rhythm with normal S1 and S2. 2/4 bilateral radial pulses. LUNGS: All lui clear to auscultation with good air movement and without rhonchi, rales or wheezes. ABDOMEN: I'm with normal bowel sounds in all quadrants. NEUROLOGICAL: Diminished sensorimotor function of bilateral upper extremity left more than right. SKIN: Posterior cervical incision under dressing without significant drainage or a signs of inflammation. Fine non-raised dry red rash on buttocks, perineum, abdomen, and up to the mid-scapular region that blanches to touch and patient reports mild itching. LABORATORY DATA: Reviewed. Please see below. MICROBIOLOGY: Please see below. IMAGING: No new imaging. DVT prophylaxis ordered?: FINA hose and sequential compression stockings. ASSESSMENT AND PLAN: 1. Rehabilitation of approximately C4 central cord syndrome: Patient with radicular elements but principally involvement of bilateral upper extremity but also secondary GI/ effects. I will go ahead and worked is improve bowel and bladder function along with the team working on neuromuscular facilitation of bilateral upper extremities and overall balance, endurance, ADL training. 2. Rash: Most likely due to new agent which is urecholine. I will stop urecholine and patient will continue Chloe 180 mg daily so not need for Benadryl. For now I will hold on any Prednisone as no edema, swelling or respiratory elements. Regarding bowel constipation, the patient with large BM on Monday, and I will repeat Dulcolax 5 mg tab this afternoon if no BM by then. 3. Anemia: Patient with stable moderate anemia with H&H of 10.1 and 30.7% today on 06/12/17. We will continue to follow this along with heart rate and blood pressure. 4. Nutrition: Albumin is severely low at 1.9. Need to focus on maintaining good nutrition and trying to improve patient's protein stores. REHAB. TEAM ROUNDS: Patient with learning deficits and some masking skills, however is participating and showing progress in PT/OT. Weight restrictions and shower status updated for patient. Currently, lives with 72 yo female relative, who is her caregiver, but is limited to guiding patient with verbal cuing mainly and little to no manual assistance. We anticipate patient will need till 06/21/17 to reach Discharge to Home Skills, though it may be done sooner if patient improves her learning abilities. Patient will likely need a FWW and Bed Rail at home for safer mobility and transfers. See attached therapy notes below. TIME SPENT: Chart Review, examination and documentation require greater than 25 minutes. Patient: Mona Whitley : 1945 Age/Sex: 71/F Unit#: [id number] Room/Bed: M4143/01 User: Gay LENY Dong OT Date: 06/12/17 12:36 Type: OT Progress Time In * 09:50 Time Out * 10:50 OT Treatment Time-Minutes * 60 mins Type of Therapy Provided * Individual Precautions * Fall Unit * Acute Inpatient Rehab Pain Comment * Pt reported occasional neck pain with movement, particularly while performing UB dressing and while sitting for extended period. Pt reports pain is relieved with standing. Subjective * Pt supine upon OT arrival, agreeable to tx. Cognition * Within Normal Limits Cognition Comments * Per medical record, pt has mild mental retardation. No significant cognitive deficits observed. Supine to Sit * Standby Assist Sit to Supine * Standby Assist Bed Mobility Notes * Patient able to perform supine <> sit with SBA with HOB flat and use of bed rail. Increased time to perform supine to sit. Sit to Stand * Standby Assist Stand to Sit * Standby Assist Bed to Chair * Standby Assist Chair to Bed * Standby Assist Toilet/Commode * Standby Assist Functional Transfer Notes: * Pt completed all sit<>stand transfers with SBA. Pt ambulated using RW with SBA and completed toilet transfer with only SBA. Bathing * Minimum Assist Dressing-Upper Body * Minimum Assist Dressing-Lower Body * Minimum Assist Grooming * Minimum Assist Toileting * Standby Assist ADL Training Note * Pt with difficulty donning B sneakers due to back folding in, despite using shoe horn, requring assist to complete. Pt then ambulated to bathroom and completed toileting with SBA only. Pt transferred to chair at sink and completed sponge bathing with assist to wash buttocks only, as pt c/o neck pain when turning around. Pt will benefit from use of toilet aide for hygiene following BM as well as bathing. Pt then completed UB dressing with min assist to pull around back. Pt reports difficulty with buttons, though with increased time, able to fasten all buttons. LB dressing- pt able to thread BLE into pants and stand to pull up with SBA only. Grooming completed at sink- pt able to brush teeth; requries assist to comb hair due to cervical precautions/brace. A. Eating (include only those with PO intake): * 05.Setup/clean up Asst Eating Comments: * See ADL note. B. Oral Hygiene (includes gums in edentulous pts): * 05.Setup/clean up Asst Oral Hygiene Comments: * See ADL note C. Toileting Hygiene (not transfers): * 04.Sup/Touch Assist Toileting Hygiene Comments: * See ADL note. E. Shower/Bathe Self (not transfers, can be sponge bath): * 04.Sup/Touch Assist Shower/Bathe Self Comments: * See ADL note F. Upper Body Dressing (includes bra, not hospital gown): * 04.Sup/Touch Assist Upper Body Dressing Comments: * See ADL note G. Lower Body Dressing (includes briefs and knee braces): * 04.Sup/Touch Assist Lower Body Dressing Comments: * See ADL note H. Putting on/taking off footwear (includes TEDS and AFO): * 04.Sup/Touch Assist Putting on/taking off footwear Comments: * See ADL note. Sit-Static * G Sit-Dynamic * G- Stand-Static * G Stand-Dynamic * G- Balance Training Note * Sitting observed EOB, standing observed with RW and with unilateral support on grab bar during bathing. OT Intervention Note * See ADL note above. Following ADL, pt returned to EOB>supine for bladder scan with RN. Pt then transferred to EOB, and ambulated to chair at bedside with SBA. All needs met, call light in reach. OT Goal Note * Continue with OT plan of care. Discharge Recommendations * Home w/services Safe for discharge at this time * No Patient: Mona Whitley : 1945 Age/Sex: 71/F Unit#: [id number] Room/Bed: [place] [address] User: Beth Geoff [facility] Date: 06/12/17 13:54 Type: OT Progress Time In * 13:01 Time Out * 13:35 OT Treatment Time-Minutes * 34 mins Type of Therapy Provided * Individual Precautions * Fall Unit * Acute Inpatient Rehab Pain Comment * Pt reported occasional neck pain with movement and while sitting for extended period. Pt reports pain is relieved with standing. Subjective * Pt seated in bedside chair with visitor present, agreeable to therapy. Cognition * Within Normal Limits Sit to Supine * Modified Independent Rolling * Standby Assist Bed Mobility Notes * Patient able to perform supine to sit, mod I with HOB flat. Sit to Stand * Standby Assist Stand to Sit * Standby Assist Toilet/Commode * Modified Independent Functional Transfer Notes: * Pt completed sit to/from stand with SBA. Pt ambulated using RW with SBA and completed toilet transfer, mod I. Toileting * Modified Independent ADL Training Note * Pt doffs and dons shoes with use of staple cutter with CGA for technique. Once shoe is stretched open, pt uses shoe horn to push tongue out of way then extends leg switching placement of shoehorn to back of sneaker. Pt able to complete clothing management and pericare post void, mod I. C. Toileting Hygiene (not transfers): * 06.Independent H. Putting on/taking off footwear (includes TEDS and AFO): * 04.Sup/Touch Assist Putting on/taking off footwear Comments: * See ADL note. Sit-Static * G Sit-Dynamic * G- Stand-Static * G Stand-Dynamic * G- Balance Training Note * Sitting observed EOB, standing observed with RW. OT Intervention Note * Pt ambulated in rehab gym with SBA and completed FM activities to increase strength required to complete ADL's at a increased level of (I). Pt picks up nickels and places them in hand with use of fingers only and then is able to maneaver them to fingers to place in cup with moderate difficulties. Pt also able lace medium sized beads onto shoe lace with minimal difficulties. Pt ambulated back to room with RW with SBA. Pt left supinein bed with call light in reach. OT Goal Note * Continue with OT plan of care. Discharge Recommendations * Home w/services Patient: Mona Whitley : 1945 Age/Sex: 71/F Unit#: [id number] Room/Bed: M4143/01 User: Tawanna Faustin PT PT Date: 06/12/17 12:29 Type: PT Progress Note Time In * 08:00 Time Out * 09:05 PT Treatment Time-Minutes * 65 mins Type of Therapy Provided * Individual Precautions * Fall Unit * Acute Inpatient Rehab Pain Comment * pt does not note any major pain today. Occasional twing noted in her kneck but she does not rate today Subjective * Pt was in good spirits and willing to participate with therapy at this time. She presented supine in bed upon entering the room. Cognition * Within Normal Limits Cognition Comments * Per medical record, pt has mild mental retardation. No significant cognitive deficits observed. Supine to Sit * Standby Assist Sit to Supine * Standby Assist Rolling * Standby Assist Bed Mobility Notes * Patient able to perform supine <> sit with SBA with HOB flat and use of bed rail. Increased time to perform supine to sit. Sit to Stand * Modified Independent Stand to Sit * Modified Independent Bed to Chair * Modified Independent Chair to Bed * Modified Independent Toilet/Commode * Not Tested Transfer Training Notes * with use of the RW pt was able to complete Mod I with use of the RW. while using cane pt needs CGA for safety as she has mild LOB today at this time. Sit-Static * G Sit-Dynamic * G- Stand-Static * G Stand-Dynamic * G- Balance Training Note * Sitting observed EOB, standing observed with RW and with unilateral support on grab bar during bathing. Standing balance in parallel bars: feet apart eyes open firm surface 1 min no notable increase in sway, feet apart eyes open firm sufrace 1 min no notable increase in sway, tandem stand Bilateral ~30 sec Bilat with increased sway noted needing touching at bars for assist to upright and stepping strategy noted. Ambulation Distance * 250 Feet Ambulation Level of Assist * Standby Assist Assistive Device Used * Cane * Rolling Walker * Gait Belt Other Assistive Device Used * aspen collar Able to Maintain Weight Bearing Status * Yes Gait Training Note * Patient ambulated 250 feet with Cane CGA, LOB x 1 without increased assist to correct. Pt then returned to RW which she is able to use with SBA t/o session. Number of Stairs Completed * 7 Stairs Railing * Yes Railing Side * Right & Left Level of Assist for Stairs * Standby Assist Stair Training Note * Patient ascending and descending stairs with step to gait pattern and use of bilateral rails. SBA, no LOB throughout. A. Roll Left and Right: * 88.Not Attempted B. Sit to Lying: * 05.Setup/clean up Asst C. Lying to Sitting on Side of Bed: * 05.Setup/clean up Asst D. Sit to Stand: * 05.Setup/clean up Asst E. Chair/[id number] Transfer: * 05.Setup/clean up Asst F. Toilet Transfer: * 88.Not Attempted G. Car Transfer: * 88.Not Attempted H. Does the patient walk?: * 2. Yes I. Walk 10 Feet: * 05.Setup/clean up Asst Walk 10 Feet Comments: * with use of RW J. Walk 50' with Two Turns: * 05.Setup/clean up Asst Walk 50' with Two Turns Comments: * with use of RW K. Walk 150 Feet: * 05.Setup/clean up Asst Walk 150 Feet Comments: * with use of RW L. Walking 10' on uneven surfaces: * 05.Setup/clean up Asst Walking 10' on uneven surfaces Comments: * amb over hurdles and red mat M. 1 Step (curb): * 04.Sup/Touch Assist N. 4 Steps (with or without railing): * 04.Sup/Touch Assist O. 12 Steps (with or without railing): * 09.Not Applicable P. Picking up Object from the Floor (from a standing): * 88.Not Attempted Q. Does the patient use a w/c (other than just transport): * 0. No Therapeutic Exercises Note * standing dynamic balance exercises: see balance section and gait section PT Interventions * Gait Training * Therapeutic Excercise * Functional Training * Bed Mobility * Balance Activities * Safety/Precautions * HEP * Pt./Family Education * D/C Needs PT Progress Note * pt con't to practice with SPC during ambulation today however is noted to have occasional LOB. She does con't to use step through gait patter appropriately and is willing to con't to practice. Pt was left supine in bed after session with her call christian. Nursing notified. Discharge Recommendations * Home w/services Safe for discharge at this time * No Patient: Mona Whitley : 1945 Age/Sex: 71/F Unit#: [id number] Room/Bed: [place] [address] User: Ewelina Sow, PT PT Date: 06/12/17 15:04 Type: PT Progress Note Time In * 13:39 Time Out * 14:05 PT Treatment Time-Minutes * 26 mins Type of Therapy Provided * Individual Precautions * Fall Unit * Acute Inpatient Rehab Pain Comment * Pt. reports no pain pre/during and post this session. Does report cramping at end of session in Lt. hand, but subsides when returning to supine with HOB elevated position Subjective * Pt. agreeable to PT. Supine with HOB elevated at start of session. Cognition * Within Normal Limits Cognition Comments * Per medical record, pt has mild mental retardation. No significant cognitive deficits observed. Supine to Sit * Modified Independant Sit to Supine * Modified Independent Rolling * Standby Assist Bed Mobility Notes * Patient able to perform supine to sit, modified I. HOB raised slightly Sit to Stand * Contact Guard Assist Stand to Sit * Contact Guard Assist Bed to Chair * Contact Guard Assist Chair to Bed * Contact Guard Assist Toilet/Commode * Modified Independent Transfer Training Notes * CGA with sit>stand with use of single point cane in Rt. UE and maintains with stand>sit transfers SBA with sit<>stand with RW. Sit-Static * G Sit-Dynamic * G- Stand-Static * G Stand-Dynamic * G- Balance Training Note * Sitting observed EOB, standing observed with RW. standing with single point cane in Rt. UE G- static; F+ dynamic Ambulation Distance * 150 Feet Ambulation Level of Assist * Standby Assist Assistive Device Used * Cane * Rolling Walker * Gait Belt Other Assistive Device Used * aspen collar [id number] with single point cane in Rt. UE [id number] with RW Able to Maintain Weight Bearing Status * Yes Gait Training Note * CGA maintains with single point cane but no LOB this session requiring outside correction; Stair Training Note * NA this session; A. Roll Left and Right: * 88.Not Attempted B. Sit to Lying: * 06.Independent Sit to Lying Comments: * HOB slightly elevated C. Lying to Sitting on Side of Bed: * 06.Independent Lying to Sitting on Side of Bed Comments: * HOB slightly elevated D. Sit to Stand: * 05.Setup/clean up Asst Sit to Stand Comments: * 5 with RW; 4 with single point cane E. Chair/[id number]-[id number] Transfer: * 05.Setup/clean up Asst Chair/[id number]-Zivmf Transfer Comments: * 5 with RW; 4 with single point cane F. Toilet Transfer: * 88.Not Attempted G. Car Transfer: * 88.Not Attempted H. Does the patient walk?: * 2. Yes I. Walk 10 Feet: * 05.Setup/clean up Asst Walk 10 Feet Comments: * with use of RW J. Walk 50' with Two Turns: * 05.Setup/clean up Asst Walk 50' with Two Turns Comments: * with use of RW K. Walk 150 Feet: * 04.Sup/Touch Assist Walk 150 Feet Comments: * with use of single point cane L. Walking 10' on uneven surfaces: * 04.Sup/Touch Assist Walking 10' on uneven surfaces Comments: * with use of single point cane M. 1 Step (curb): * 04.Sup/Touch Assist 1 Step (curb) Comments: * with use of single point cane N. 4 Steps (with or without railing): * 88.Not Attempted O. 12 Steps (with or without railing): * 88.Not Attempted P. Picking up Object from the Floor (from a standing): * 88.Not Attempted Q. Does the patient use a w/c (other than just transport): * 0. No R. Wheel 50' with 2 Turns(seated in w/c): * 88.Not Attempted S. Wheel 150' (seated in w/c): * 88.Not Attempted Lower Extremity Exercised * Bilateral Standing Exercises * Other Therapeutic Exercises Note * TA: TUG test performed 2 trials with RW: avg. of 26seconds SBA 2 trials with single point cane in Rt. UE: avg. of 28 seconds CGA forward and backward ambulation within // bars with use of B UE support 2x10ft 3 step forward rocio stepovers in // bars with single point cane for support 2x10ft single UE support of // bar 2x10ft and single point cane 2x10ft no LOB PT Interventions * Gait Training * Therapeutic Excercise * Functional Training * Bed Mobility * Balance Activities * Safety/Precautions * HEP * Pt./Family Education * D/C Needs PT Progress Note * Pt. is progressing with no LOB this session with single point cane however does continues to require CGA to ensure safety throughout. Does demonstrate improved wider QUINTEN with forward/backward ambulation as Pt. progressed with // bar balance/stability progression. TUG test performed wtih RW (26 seconds) and single point cane (28seconds). Pt. progressing well, fatigue post tx but no pain throughout. Pt. supine with HOB elevated and nurse notified. Discharge Recommendations * Home w/services Allergies Coded Allergies: Codeine (Verified Adverse Reaction, Mild, n/v, 06/06/17) Vital Signs Vital Signs Date Time Temp Pulse Resp B/P (MAP) Pulse Ox O2 Delivery O2 Flow Rate FiO2 06/12/17 06:00 97.9 76 16 117/63 (81) 95 Room Air Laboratory Data CBC/BMP Laboratory Tests 06/12/17 07:26 Red Blood Count 3.38 L, Mean Corpuscular Volume 90.8, Mean Corpuscular Hemoglobin 29.9, Mean Corpuscular Hemoglobin Concent 32.9, Red Cell Distribution Width 14.2, Calcium Level 8.0 L Labs 24H Laboratory Tests 2 06/12/17 07:26: Nucleated Red Blood Cells % (auto) 0.0, Anion Gap 7L, Glomerular Filtration Rate > 60.0, Blood Urea Nitrogen 16, Creatinine 0.84, Sodium Level 142, Potassium Level 3.6, Chloride Level 103, Carbon Dioxide Level 32, Calcium Level 8.0L Current Medications Current Medications Current Medications Acetaminophen (Tylenol Tab) 650 mg Q6HP PRN PO PAIN OR FEVER Last administered on 06/11/17 11:10; Start 06/08/17 at 11:45; Stop 07/08/17 at 11:44 Allopurinol (Zyloprim) 100 mg DAILY PO Last administered on 06/12/17 09:07; Start 06/09/17 at 09:00; Stop 07/09/17 at 08:59 Bethanechol Chloride (Urecholine) 10 mg DAILY@1400 PO Last administered on 06/11 15:57; Start 06/09/17 at 14:00; Stop 06/12/17 at 10:32; Status DC Bisacodyl (Dulcolax Tab) 5 mg DAILYPRN PRN PO CONSTIPATION Last administered on 06/09/17 18:48; Start 06/08/17 at 11:45; Stop 07/08/17 at 11:44 Fexofenadine HCl (Chloe) 180 mg DAILY PO Last administered on 06/12/17 09:07 ; Start 06/09/17 at 09:00; Stop 07/09/17 at 08:59 Gabapentin (Neurontin) 100 mg Q8H PO Last administered on 06/12/17 06:05; Start 06/08/17 at 14:00; Stop 07/08/17 at 13:59 Hydrochlorothiazide (Hydrodiuril) 12.5 mg DAILY PO Last administered on 09:07; Start 06/09/17 at 09:00; Stop 07/09/17 at 08:59 Magnesium Hydroxide (Milk Of Magnesia) 30 ml DAILYPRN PRN PO CONSTIPATION Last administered on 06/09/17 14:04; Start 06/09/17 at 08:00; Stop 07/09/17 at 07: 59 Montelukast Sodium (Singulair) 10 mg QHS PO Last administered on 06/11/17 20: 18; Start 06/08/17 at 21:00; Stop 07/08/17 at 20:59 Omeprazole (PriLOSEC) 20 mg DAILY PO Last administered on 06/12/17 09:07; Start 06/08/17 at 09:00; Stop 07/08/17 at 08:59 Oxycodone HCl (Roxicodone, Oxyir) 5 mg Q4HP PRN PO PAIN SCALE 6-10 Last administered on 06/11/17 23:14; Start 06/08/17 at 11:45; Stop 06/15/17 at 11: 44 Psyllium Hydrophilic Mucilloid (Metamucil) 1 pkt DAILY PO Last administered on 06/12/17 09:07; Start 06/08/17 at 09:00; Stop 07/08/17 at 08:59 Simvastatin (Zocor) 20 mg QHS PO Last administered on 06/11/17 20:18; Start 06/08/17 at 21:00; Stop 07/08/17 at 20:59 Tizanidine HCl (Zanaflex) 4 mg Q6HP PRN PO SPASMS Last administered on 06:10; Start 06/08/17 at 12:00; Stop 07/08/17 at 11:59 DONY SHIELDS MD Jun 12, 2017 11:45
[2017-06-12] MEDS: ACETAMINOPHEN TAB 650MG DOSE (2X325MG) PO PRN (13:06)
[2017-06-12 14:00] VITALS: BP 105/64
[2017-06-12] MEDS: BISACODYL 5 MG TAB PO PRN (14:59)
[2017-06-12 20:00] VITALS: BP 123/68
[2017-06-12] MEDS: SIMVASTATIN 20 MG TAB PO SCH (21:41)
[2017-06-12] MEDS: MONTELUKAST 10 MG TAB PO SCH (21:41)
[2017-06-13] MEDS: ACETAMINOPHEN TAB 650MG DOSE (2X325MG) PO PRN ×2 (01:22→21:48)
[2017-06-13] MEDS: GABAPENTIN 100 MG CAP PO SCH ×3 (05:57→21:46)
[2017-06-13 06:00] VITALS: BP 129/60
[2017-06-13] MEDS: METAMUCIL (PSYLLIUM) PACKET PO SCH (09:00)
[2017-06-13] MEDS: hydroCHLOROthiazide 12.5 MG CAPSULE PO SCH (09:06)
[2017-06-13] MEDS: OMEPRAZOLE 20 MG CAP PO SCH (09:06)
[2017-06-13] MEDS: ALLOPURINOL 100 MG TAB PO SCH (09:06)
[2017-06-13] MEDS: FEXOFENADINE 60 MG TAB PO SCH (09:06)
[2017-06-13] MEDS: tiZANidine 4 MG TAB PO PRN (11:53)
[2017-06-13 15:07] VITALS: BP 130/68
--- NOTE | 2017-06-13 15:17 | IPNPDOC ---
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 On evaluation, she was found to have cervical compression and radiculopathy and was assessed by Dr. Lucas who felt that decompressive surgery was her best option. Patient has now had the decompression surgery and fusion; however, during the time of pain, patient has had progressive problems with bladder control, having more and more retention, suggestive that she does have cervical compression in more of a central cord fashion with principal deficits in the upper extremities but some balance and bladder deficits in the lower regions. Patient notes not having a significant pain at this time. No other complaints. ALLERGIES: See Below MEDICATIONS: Reviewed, see below. OBJECTIVE: VITAL SIGNS: Please see below. PHYSICAL EXAMINATION: GENERAL: Short obese middle-aged white female who looks slightly less than stated age of 71. Patient is pleasant cooperative and in good spirits. She is oriented to self, place and general time and situation. HEENT: Normocephalic/atraumatic. CARDIOVASCULAR: Regular rate and rhythm with normal S1 and S2. 2/4 bilateral radial pulses. LUNGS: All lui clear to auscultation with good air movement and without rhonchi, rales or wheezes. ABDOMEN: I'm with normal bowel sounds in all quadrants. NEUROLOGICAL: Diminished sensorimotor function of bilateral upper extremity left more than right. SKIN: Posterior cervical incision under dressing without significant drainage or a signs of inflammation. Rash now gone. Neck incision healing well. LABORATORY DATA: Reviewed. Please see below. MICROBIOLOGY: Please see below. IMAGING: No new imaging. DVT prophylaxis ordered?: FINA hose and sequential compression stockings. ASSESSMENT AND PLAN: 1. Rehabilitation of approximately C4 central cord syndrome: Patient with radicular elements but principally involvement of bilateral upper extremity but also secondary GI/ effects. I will go ahead and worked is improve bowel and bladder function along with the team working on neuromuscular facilitation of bilateral upper extremities and overall balance, endurance, ADL training. 2. Rash: Most likely was due to new agent which is urecholine. I will stop urecholine and patient will continue Chloe 180 mg daily. Rash now faded out and patient denies itching. Regarding bowel constipation, the patient with large BM on Monday, and I changed Dulcolax 5 mg tab Daily. 3. Anemia: Patient with stable moderate anemia with H&H of 10.1 and 30.7% on 06/12/17. We will continue to follow this along with heart rate and blood pressure. 4. Nutrition: Albumin is severely low at 1.9. Need to focus on maintaining good nutrition and trying to improve patient's protein stores. TIME SPENT: Chart Review, examination and documentation require greater than 25 minutes. Allergies Coded Allergies: Bethanechol (Verified Allergy, Mild, Mild Puritic Fine Red rash., 06/13/17) Codeine (Verified Adverse Reaction, Mild, n/v, 06/06/17) Vital Signs Vital Signs Date Time Temp Pulse Resp B/P (MAP) Pulse Ox O2 Delivery O2 Flow Rate FiO2 06/13/17 15:07 98.3 82 20 130/68 (88) 97 Room Air Current Medications Current Medications Current Medications Acetaminophen (Tylenol Tab) 650 mg Q6HP PRN PO PAIN OR FEVER Last administered on 06/13/17 01:22; Start 06/08/17 at 11:45; Stop 07/08/17 at 11:44 Allopurinol (Zyloprim) 100 mg DAILY PO Last administered on 06/13/17 09:06; Start 06/09/17 at 09:00; Stop 07/09/17 at 08:59 Bethanechol Chloride (Urecholine) 10 mg DAILY@1400 PO Last administered on 06/11 15:57; Start 06/09/17 at 14:00; Stop 06/12/17 at 10:32; Status DC Bisacodyl (Dulcolax Tab) 5 mg DAILY@1700 PO ; Start 06/13/17 at 17:00; Stop 07/13 at 16:59 Bisacodyl (Dulcolax Tab) 5 mg DAILY@1700 PO ; Start 06/13/17 at 17:00; Stop 07/13 at 16:59; Status Cancel Bisacodyl (Dulcolax Tab) 5 mg DAILYPRN PRN PO CONSTIPATION Last administered on 06/12/17 14:59; Start 06/08/17 at 11:45; Stop 06/13/17 at 08:27; Status DC Fexofenadine HCl (Chloe) 180 mg DAILY PO Last administered on 06/13/17 09:06 ; Start 06/09/17 at 09:00; Stop 07/09/17 at 08:59 Gabapentin (Neurontin) 100 mg Q8H PO Last administered on 06/13/17 14:14; Start 06/08/17 at 14:00; Stop 07/08/17 at 13:59 Hydrochlorothiazide (Hydrodiuril) 12.5 mg DAILY PO Last administered on 09:06; Start 06/09/17 at 09:00; Stop 07/09/17 at 08:59 Magnesium Hydroxide (Milk Of Magnesia) 30 ml DAILYPRN PRN PO CONSTIPATION Last administered on 06/09/17 14:04; Start 06/09/17 at 08:00; Stop 07/09/17 at 07: 59 Montelukast Sodium (Singulair) 10 mg QHS PO Last administered on 06/12/17 21: 41; Start 06/08/17 at 21:00; Stop 07/08/17 at 20:59 Omeprazole (PriLOSEC) 20 mg DAILY PO Last administered on 06/13/17 09:06; Start 06/08/17 at 09:00; Stop 07/08/17 at 08:59 Oxycodone HCl (Roxicodone, Oxyir) 5 mg Q4HP PRN PO PAIN SCALE 6-10 Last administered on 06/11/17 23:14; Start 06/08/17 at 11:45; Stop 06/21/17 at 23: 55 Psyllium Hydrophilic Mucilloid (Metamucil) 1 pkt DAILY PO Last administered on 06/12/17 09:07; Start 06/08/17 at 09:00; Stop 07/08/17 at 08:59 Simvastatin (Zocor) 20 mg QHS PO Last administered on 06/12/17 21:41; Start 06/08/17 at 21:00; Stop 07/08/17 at 20:59 Tizanidine HCl (Zanaflex) 4 mg Q6HP PRN PO SPASMS Last administered on 11:53; Start 06/08/17 at 12:00; Stop 07/08/17 at 11:59 DONY SHIELDS MD Jun 13, 2017 15:17
[2017-06-13] MEDS ORDERED: BISACODYL 5 MG TAB PO SCH ×2 (17:00)
[2017-06-13 20:00] VITALS: BP 110/60
[2017-06-13] MEDS: SIMVASTATIN 20 MG TAB PO SCH (21:46)
[2017-06-13] MEDS: MONTELUKAST 10 MG TAB PO SCH (21:46)
[2017-06-14] MEDS: GABAPENTIN 100 MG CAP PO SCH ×3 (05:06→23:04)
[2017-06-14 06:00] VITALS: BP 129/62
[2017-06-14] MEDS: FEXOFENADINE 60 MG TAB PO SCH (08:17)
[2017-06-14] MEDS: MOM 30ML SUSPENSION UDC PO PRN (08:17)
[2017-06-14] MEDS: ALLOPURINOL 100 MG TAB PO SCH (08:18)
[2017-06-14] MEDS: METAMUCIL (PSYLLIUM) PACKET PO SCH (08:18)
[2017-06-14] MEDS: OMEPRAZOLE 20 MG CAP PO SCH (08:18)
[2017-06-14] MEDS: hydroCHLOROthiazide 12.5 MG CAPSULE PO SCH (08:18)
[2017-06-14] MEDS: ACETAMINOPHEN TAB 650MG DOSE (2X325MG) PO PRN ×2 (11:03→23:04)
--- NOTE | 2017-06-14 13:37 | IPNPDOC ---
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 On evaluation, she was found to have cervical compression and radiculopathy and was assessed by Dr. Lucas who felt that decompressive surgery was her best option. Patient has now had the decompression surgery and fusion; however, during the time of pain, patient has had progressive problems with bladder control, having more and more retention, suggestive that she does have cervical compression in more of a central cord fashion with principal deficits in the upper extremities but some balance and bladder deficits in the lower regions. Patient notes some neck and left shoulder discomfort at times, especially when using the LUE. ALLERGIES: See Below MEDICATIONS: Reviewed, see below. OBJECTIVE: VITAL SIGNS: Please see below. PHYSICAL EXAMINATION: GENERAL: Short obese middle-aged white female who looks slightly less than stated age of 71. Patient is pleasant cooperative and in good spirits. She is oriented to self, place and general time and situation. HEENT: Normocephalic/atraumatic. CARDIOVASCULAR: Regular rate and rhythm with normal S1 and S2. 2/4 bilateral radial pulses. LUNGS: All lui clear to auscultation with good air movement and without rhonchi, rales or wheezes. ABDOMEN: I'm with normal bowel sounds in all quadrants. NEUROLOGICAL: Diminished sensorimotor function of bilateral upper extremity left more than right. SKIN: Posterior cervical incision under dressing without significant drainage or a signs of inflammation. Rash now gone. Neck incision healing well. LABORATORY DATA: Reviewed. Please see below. MICROBIOLOGY: Please see below. IMAGING: No new imaging. DVT prophylaxis ordered?: FINA hose and sequential compression stockings. ASSESSMENT AND PLAN: 1. Rehabilitation of approximately C4 central cord syndrome: Patient with radicular elements but principally involvement of bilateral upper extremity but also secondary GI/ effects. I will go ahead and worked is improve bowel and bladder function along with the team working on neuromuscular facilitation of bilateral upper extremities and overall balance, endurance, ADL training. She needs to be better with donning and doffing cervical collar and ability to consistently go from laying flat to being able to get up and use walker to go to bathroom and back to bed as caregiver mainly only able to provide verbal cuing. Anticipated Date of Discharge to Home is 06/21/17. 2. Rash: Most likely was due to new agent which is urecholine. I will stop urecholine and patient will continue Chloe 180 mg daily. Rash now gone and patient denies itching. 3. Anemia: Patient with stable moderate anemia with H&H of 10.1 and 30.7% on 06/12/17. We will continue to follow this along with heart rate and blood pressure. 4. Nutrition: Albumin is severely low at 1.9. Need to focus on maintaining good nutrition and trying to improve patient's protein stores. 5. Neurogenic Bowel: I will increase bowel program to Dulcolax bid. TIME SPENT: Chart Review, examination and documentation require greater than 25 minutes. Allergies Coded Allergies: Bethanechol (Verified Allergy, Mild, Mild Puritic Fine Red rash., 06/13/17) Codeine (Verified Adverse Reaction, Mild, n/v, 06/06/17) Vital Signs Vital Signs Date Time Temp Pulse Resp B/P (MAP) Pulse Ox O2 Delivery O2 Flow Rate FiO2 06/14/17 06:00 97.9 80 18 129/62 (84) 95 Room Air Current Medications Current Medications Current Medications Acetaminophen (Tylenol Tab) 650 mg Q6HP PRN PO PAIN OR FEVER Last administered on 06/14/17 11:03; Start 06/08/17 at 11:45; Stop 07/08/17 at 11:44 Allopurinol (Zyloprim) 100 mg DAILY PO Last administered on 06/14/17 08:18; Start 06/09/17 at 09:00; Stop 07/09/17 at 08:59 Bethanechol Chloride (Urecholine) 10 mg DAILY@1400 PO Last administered on 06/11 15:57; Start 06/09/17 at 14:00; Stop 06/12/17 at 10:32; Status DC Bisacodyl (Dulcolax Tab) 5 mg DAILY@1700 PO Last administered on 06/13/17 17: 22; Start 06/13/17 at 17:00; Stop 07/13/17 at 16:59 Bisacodyl (Dulcolax Tab) 5 mg DAILY@1700 PO ; Start 06/13/17 at 17:00; Stop 07/13 at 16:59; Status Cancel Bisacodyl (Dulcolax Tab) 5 mg DAILYPRN PRN PO CONSTIPATION Last administered on 06/12/17 14:59; Start 06/08/17 at 11:45; Stop 06/13/17 at 08:27; Status DC Fexofenadine HCl (Chloe) 180 mg DAILY PO Last administered on 06/14/17 08:17 ; Start 06/09/17 at 09:00; Stop 07/09/17 at 08:59 Gabapentin (Neurontin) 100 mg Q8H PO Last administered on 06/14/17 13:18; Start 06/08/17 at 14:00; Stop 07/08/17 at 13:59 Hydrochlorothiazide (Hydrodiuril) 12.5 mg DAILY PO Last administered on 08:18; Start 06/09/17 at 09:00; Stop 07/09/17 at 08:59 Magnesium Hydroxide (Milk Of Magnesia) 30 ml DAILYPRN PRN PO CONSTIPATION Last administered on 06/14/17 08:17; Start 06/09/17 at 08:00; Stop 07/09/17 at 07: 59 Montelukast Sodium (Singulair) 10 mg QHS PO Last administered on 06/13/17 21: 46; Start 06/08/17 at 21:00; Stop 07/08/17 at 20:59 Omeprazole (PriLOSEC) 20 mg DAILY PO Last administered on 06/14/17 08:18; Start 06/08/17 at 09:00; Stop 07/08/17 at 08:59 Oxycodone HCl (Roxicodone, Oxyir) 5 mg Q4HP PRN PO PAIN SCALE 6-10 Last administered on 06/11/17 23:14; Start 06/08/17 at 11:45; Stop 06/21/17 at 23: 55 Psyllium Hydrophilic Mucilloid (Metamucil) 1 pkt DAILY PO Last administered on 06/14/17 08:18; Start 06/08/17 at 09:00; Stop 07/08/17 at 08:59 Simvastatin (Zocor) 20 mg QHS PO Last administered on 06/13/17 21:46; Start 06/08/17 at 21:00; Stop 07/08/17 at 20:59 Tizanidine HCl (Zanaflex) 4 mg Q6HP PRN PO SPASMS Last administered on 11:53; Start 06/08/17 at 12:00; Stop 07/08/17 at 11:59 DONY SHIELDS MD Jun 14, 2017 13:37
[2017-06-14 14:00] VITALS: BP 121/71
[2017-06-14 20:00] VITALS: BP 120/67
[2017-06-14] MEDS: MONTELUKAST 10 MG TAB PO SCH (23:04)
[2017-06-14] MEDS: SIMVASTATIN 20 MG TAB PO SCH (23:04)
[2017-06-14] MEDS: BISACODYL 5 MG TAB PO SCH (23:05)
[2017-06-15 06:00] VITALS: BP 106/61
[2017-06-15] MEDS: GABAPENTIN 100 MG CAP PO SCH ×3 (06:01→20:49)
[2017-06-15] MEDS: ACETAMINOPHEN TAB 650MG DOSE (2X325MG) PO PRN (08:55)
[2017-06-15] MEDS: FEXOFENADINE 60 MG TAB PO SCH (08:55)
[2017-06-15] MEDS: METAMUCIL (PSYLLIUM) PACKET PO SCH (08:55)
[2017-06-15] MEDS: hydroCHLOROthiazide 12.5 MG CAPSULE PO SCH (08:55)
[2017-06-15] MEDS: OMEPRAZOLE 20 MG CAP PO SCH (08:55)
[2017-06-15] MEDS: ALLOPURINOL 100 MG TAB PO SCH (08:55)
[2017-06-15] MEDS: BISACODYL 5 MG TAB PO SCH ×2 (08:55→20:49)
--- NOTE | 2017-06-15 12:21 | IPNPDOC ---
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 On evaluation, she was found to have cervical compression and radiculopathy and was assessed by Dr. Lucas who felt that decompressive surgery was her best option. Patient has now had the decompression surgery and fusion; however, during the time of pain, patient has had progressive problems with bladder control, having more and more retention, suggestive that she does have cervical compression in more of a central cord fashion with principal deficits in the upper extremities but some balance and bladder deficits in the lower regions. Patient notes some neck and left shoulder discomfort at times, especially when using the LUE. ALLERGIES: See Below MEDICATIONS: Reviewed, see below. OBJECTIVE: VITAL SIGNS: Please see below. PHYSICAL EXAMINATION: GENERAL: Short obese middle-aged white female who looks slightly less than stated age of 71. Patient is pleasant cooperative and in good spirits. She is oriented to self, place and general time and situation. HEENT: Normocephalic/atraumatic. CARDIOVASCULAR: Regular rate and rhythm with normal S1 and S2. 2/4 bilateral radial pulses. LUNGS: All lui clear to auscultation with good air movement and without rhonchi, rales or wheezes. ABDOMEN: I'm with normal bowel sounds in all quadrants. NEUROLOGICAL: Diminished sensorimotor function of bilateral upper extremity left more than right. Balance improving but still some leaning on making turns. Good gaiting with FWW endurance. SKIN: Posterior cervical incision under dressing without significant drainage or a signs of inflammation. Rash now gone. Neck incision healing well. LABORATORY DATA: Reviewed. Please see below. MICROBIOLOGY: Please see below. IMAGING: No new imaging. DVT prophylaxis ordered?: FINA hose and sequential compression stockings. ASSESSMENT AND PLAN: 1. Rehabilitation of approximately C4 central cord syndrome: Patient with radicular elements but principally involvement of bilateral upper extremity but also secondary GI/ effects. I will go ahead and worked is improve bowel and bladder function along with the team working on neuromuscular facilitation of bilateral upper extremities and overall balance, endurance, ADL training. She needs to be better with donning and doffing cervical collar and ability to consistently go from laying flat to being able to get up and use walker to go to bathroom and back to bed as caregiver mainly only able to provide verbal cuing. Anticipated Date of Discharge to Home is 06/21/17. 2. Rash: Most likely was due to new agent which is urecholine. I will stop urecholine and patient will continue Chloe 180 mg daily. Rash now gone and patient denies itching. 3. Anemia: Patient with stable moderate anemia with H&H of 10.1 and 30.7% on 06/12/17. We will continue to follow this along with heart rate and blood pressure. 4. Nutrition: Albumin is severely low at 1.9. Need to focus on maintaining good nutrition and trying to improve patient's protein stores. 5. Neurogenic Bowel: I will increase bowel program to Dulcolax bid. TIME SPENT: Chart Review, examination and documentation require greater than 25 minutes. Allergies Coded Allergies: Bethanechol (Verified Allergy, Mild, Mild Puritic Fine Red rash., 06/13/17) Codeine (Verified Adverse Reaction, Mild, n/v, 06/06/17) Vital Signs Vital Signs Date Time Temp Pulse Resp B/P (MAP) Pulse Ox O2 Delivery O2 Flow Rate FiO2 06/15/17 06:00 98.1 75 18 106/61 (76) 96 Room Air Current Medications Current Medications Current Medications Acetaminophen (Tylenol Tab) 650 mg Q6HP PRN PO PAIN OR FEVER Last administered on 06/15/17 08:55; Start 06/08/17 at 11:45; Stop 07/08/17 at 11:44 Allopurinol (Zyloprim) 100 mg DAILY PO Last administered on 06/15/17 08:55; Start 06/09/17 at 09:00; Stop 07/09/17 at 08:59 Bethanechol Chloride (Urecholine) 10 mg DAILY@1400 PO Last administered on 06/11 15:57; Start 06/09/17 at 14:00; Stop 06/12/17 at 10:32; Status DC Bisacodyl (Dulcolax Tab) 5 mg BID PO Last administered on 06/15/17 08:55; Start 06/14/17 at 21:00; Stop 1/4/18 at 16:59 Bisacodyl (Dulcolax Tab) 5 mg DAILY@1700 PO ; Start 06/13/17 at 17:00; Stop 07/13 at 16:59; Status Cancel Bisacodyl (Dulcolax Tab) 5 mg DAILY@1700 PO Last administered on 06/13/17 17: 22; Start 06/13/17 at 17:00; Stop 06/14/17 at 13:35; Status DC Bisacodyl (Dulcolax Tab) 5 mg DAILYPRN PRN PO CONSTIPATION Last administered on 06/12/17 14:59; Start 06/08/17 at 11:45; Stop 06/13/17 at 08:27; Status DC Fexofenadine HCl (Chloe) 180 mg DAILY PO Last administered on 06/15/17 08:55 ; Start 06/09/17 at 09:00; Stop 07/09/17 at 08:59 Gabapentin (Neurontin) 100 mg Q8H PO Last administered on 06/15/17 06:01; Start 06/08/17 at 14:00; Stop 07/08/17 at 13:59 Hydrochlorothiazide (Hydrodiuril) 12.5 mg DAILY PO Last administered on 08:55; Start 06/09/17 at 09:00; Stop 07/09/17 at 08:59 Magnesium Hydroxide (Milk Of Magnesia) 30 ml DAILYPRN PRN PO CONSTIPATION Last administered on 06/14/17 08:17; Start 06/09/17 at 08:00; Stop 07/09/17 at 07: 59 Montelukast Sodium (Singulair) 10 mg QHS PO Last administered on 06/14/17 23: 04; Start 06/08/17 at 21:00; Stop 07/08/17 at 20:59 Omeprazole (PriLOSEC) 20 mg DAILY PO Last administered on 06/15/17 08:55; Start 06/08/17 at 09:00; Stop 07/08/17 at 08:59 Oxycodone HCl (Roxicodone, Oxyir) 5 mg Q4HP PRN PO PAIN SCALE 6-10 Last administered on 06/11/17 23:14; Start 06/08/17 at 11:45; Stop 06/21/17 at 23: 55 Psyllium Hydrophilic Mucilloid (Metamucil) 1 pkt DAILY PO Last administered on 06/15/17 08:55; Start 06/08/17 at 09:00; Stop 07/08/17 at 08:59 Simvastatin (Zocor) 20 mg QHS PO Last administered on 06/14/17 23:04; Start 06/08/17 at 21:00; Stop 07/08/17 at 20:59 Tizanidine HCl (Zanaflex) 4 mg Q6HP PRN PO SPASMS Last administered on 11:53; Start 06/08/17 at 12:00; Stop 07/08/17 at 11:59 DONY SHIELDS MD Jun 15, 2017 12:21
[2017-06-15 14:00] VITALS: BP 124/75
[2017-06-15] MEDS ORDERED: GABA-279 PO (14:10)
[2017-06-15 20:00] VITALS: BP_SYST 118; BP_SYST 92; BP_DIAS 51; BP_DIAS 76
[2017-06-15] MEDS: MONTELUKAST 10 MG TAB PO SCH (20:48)
[2017-06-15] MEDS: SIMVASTATIN 20 MG TAB PO SCH (20:48)
[2017-06-16] MEDS: GABAPENTIN 100 MG CAP PO SCH ×3 (05:23→21:03)
[2017-06-16 06:00] VITALS: BP 131/82
[2017-06-16 07:55] LABS: MEAN CORPUSCULAR HEMOGLOBIN 29.5 pg (27.0-33.0); MEAN CORPUSCULAR VOLUME 89.3 fl (80.0-96.0); PLATELET COUNT, AUTOMATED 274 10^3/uL (150-450); RED CELL DISTRIBUTION WIDTH 14.6 % (11.5-14.5); WHITE BLOOD COUNT 5.9 10^3/uL (4.0-10.0)
[2017-06-16 08:12] LABS: ANION GAP 9 MEQ/L (8-16); BLOOD UREA NITROGEN 13 MG/DL (7-18); CARBON DIOXIDE LEVEL 28 MEQ/L (21-32); CHLORIDE LEVEL 103 MEQ/L (98-107); CREATININE FOR GFR 0.86 MG/DL (0.55-1.02); GLOMERULAR FILTRATION RATE > 60.0 (>45); GLUCOSE, FASTING 92 MG/DL (80-110); POTASSIUM SERUM 3.5 MEQ/L (3.5-5.1); SODIUM LEVEL 140 MEQ/L (136-145)
[2017-06-16] MEDS: BISACODYL 5 MG TAB PO SCH ×2 (08:25→21:03)
[2017-06-16] MEDS: OMEPRAZOLE 20 MG CAP PO SCH (08:25)
[2017-06-16] MEDS: FEXOFENADINE 60 MG TAB PO SCH (08:25)
[2017-06-16] MEDS: hydroCHLOROthiazide 12.5 MG CAPSULE PO SCH (08:25)
[2017-06-16] MEDS: ALLOPURINOL 100 MG TAB PO SCH (08:25)
[2017-06-16] MEDS: ACETAMINOPHEN TAB 650MG DOSE (2X325MG) PO PRN ×2 (08:26→21:03)
[2017-06-16] MEDS: METAMUCIL (PSYLLIUM) PACKET PO SCH (08:27)
[2017-06-16 14:00] VITALS: BP 113/71
[2017-06-16 20:00] VITALS: BP 113/63
[2017-06-16] MEDS: MONTELUKAST 10 MG TAB PO SCH (21:03)
[2017-06-16] MEDS: SIMVASTATIN 20 MG TAB PO SCH (21:03)
[2017-06-17] MEDS: GABAPENTIN 100 MG CAP PO SCH ×3 (05:11→21:07)
[2017-06-17 06:00] VITALS: BP 144/66
[2017-06-17] MEDS: METAMUCIL (PSYLLIUM) PACKET PO SCH (08:26)
[2017-06-17] MEDS: BISACODYL 5 MG TAB PO SCH ×2 (08:26→21:07)
[2017-06-17] MEDS: ALLOPURINOL 100 MG TAB PO SCH (08:26)
[2017-06-17] MEDS: OMEPRAZOLE 20 MG CAP PO SCH (08:26)
[2017-06-17] MEDS: FEXOFENADINE 60 MG TAB PO SCH (08:26)
[2017-06-17] MEDS: hydroCHLOROthiazide 12.5 MG CAPSULE PO SCH (08:27)
[2017-06-17 14:00] VITALS: BP 131/77
[2017-06-17] MEDS: ACETAMINOPHEN TAB 650MG DOSE (2X325MG) PO PRN ×2 (14:04→21:07)
[2017-06-17 20:00] VITALS: BP 118/57
[2017-06-17] MEDS: MONTELUKAST 10 MG TAB PO SCH (21:07)
[2017-06-17] MEDS: SIMVASTATIN 20 MG TAB PO SCH (21:07)
[2017-06-18] MEDS: GABAPENTIN 100 MG CAP PO SCH ×3 (05:08→21:05)
[2017-06-18] MEDS: ACETAMINOPHEN TAB 650MG DOSE (2X325MG) PO PRN ×2 (05:10→20:05)
[2017-06-18 06:00] VITALS: BP 109/66
[2017-06-18] MEDS: FEXOFENADINE 60 MG TAB PO SCH (08:32)
[2017-06-18] MEDS: BISACODYL 5 MG TAB PO SCH ×2 (08:33→20:01)
[2017-06-18] MEDS: METAMUCIL (PSYLLIUM) PACKET PO SCH (08:33)
[2017-06-18] MEDS: OMEPRAZOLE 20 MG CAP PO SCH (08:33)
[2017-06-18] MEDS: ALLOPURINOL 100 MG TAB PO SCH (08:33)
[2017-06-18] MEDS: hydroCHLOROthiazide 12.5 MG CAPSULE PO SCH (08:33)
[2017-06-18 13:58] VITALS: BP 130/76
[2017-06-18 20:00] VITALS: BP 120/70
[2017-06-18] MEDS: SIMVASTATIN 20 MG TAB PO SCH (20:04)
[2017-06-18] MEDS: MONTELUKAST 10 MG TAB PO SCH (20:05)
[2017-06-19] MEDS: GABAPENTIN 100 MG CAP PO SCH ×2 (05:45→14:23)
[2017-06-19 06:00] VITALS: BP 112/64
[2017-06-19 07:19] LABS: MEAN CORPUSCULAR HEMOGLOBIN 29.9 pg (27.0-33.0); MEAN CORPUSCULAR HGB CONC 33.1 g/dl (32.0-36.5); MEAN CORPUSCULAR VOLUME 90.3 fl (80.0-96.0); PLATELET COUNT, AUTOMATED 176 10^3/uL (150-450); RED CELL DISTRIBUTION WIDTH 14.7 % (11.5-14.5); WHITE BLOOD COUNT 5.2 10^3/uL (4.0-10.0)
[2017-06-19 07:43] LABS: ALBUMIN 2.2 GM/DL (3.2-5.2); ALBUMIN/GLOBULIN RATIO 0.69 (1.00-1.93); ALKALINE PHOSPHATASE 64 U/L (45-117); ALT/SGPT 12 U/L (12-78); ANION GAP 8 MEQ/L (8-16); AST/SGOT 12 U/L (7-37); BILIRUBIN,TOTAL 0.3 MG/DL (0.2-1.0); BLOOD UREA NITROGEN 11 MG/DL (7-18); CALCIUM LEVEL 8.4 MG/DL (8.8-10.2); CARBON DIOXIDE LEVEL 29 MEQ/L (21-32); CHLORIDE LEVEL 103 MEQ/L (98-107); CREATININE FOR GFR 0.74 MG/DL (0.55-1.02); GLOMERULAR FILTRATION RATE > 60.0 (>45); GLUCOSE, FASTING 85 MG/DL (80-110); SODIUM LEVEL 140 MEQ/L (136-145); TOTAL PROTEIN 5.4 GM/DL (6.4-8.2)
[2017-06-19] MEDS: OMEPRAZOLE 20 MG CAP PO SCH (08:07)
[2017-06-19] MEDS: tiZANidine 4 MG TAB PO PRN (08:07)
[2017-06-19] MEDS: hydroCHLOROthiazide 12.5 MG CAPSULE PO SCH (08:07)
[2017-06-19] MEDS: BISACODYL 5 MG TAB PO SCH (08:07)
[2017-06-19] MEDS: ALLOPURINOL 100 MG TAB PO SCH (08:07)
[2017-06-19] MEDS: ACETAMINOPHEN TAB 650MG DOSE (2X325MG) PO PRN (08:07)
[2017-06-19] MEDS: FEXOFENADINE 60 MG TAB PO SCH (08:07)
[2017-06-19] MEDS: METAMUCIL (PSYLLIUM) PACKET PO SCH (08:08)
[2017-06-19 08:12] LABS: POTASSIUM SERUM 2.8 MEQ/L (3.5-5.1)
[2017-06-19 09:29] LABS: ANION GAP 9 MEQ/L (8-16); BLOOD UREA NITROGEN 11 MG/DL (7-18); CALCIUM LEVEL 8.7 MG/DL (8.8-10.2); CARBON DIOXIDE LEVEL 29 MEQ/L (21-32); CHLORIDE LEVEL 101 MEQ/L (98-107); CREATININE FOR GFR 0.97 MG/DL (0.55-1.02); GLOMERULAR FILTRATION RATE > 60.0 (>45); GLUCOSE, FASTING 165 MG/DL (80-110); POTASSIUM SERUM 3.1 MEQ/L (3.5-5.1); SODIUM LEVEL 139 MEQ/L (136-145)
[2017-06-19] MEDS ORDERED: POTA10TA67 PO (09:40)
[2017-06-19] MEDS ORDERED: POTASSIUM CHLORIDE 10 MEQ SR TABLET PO ONE (10:00)
--- NOTE | 2017-06-19 22:49 | PMRDS ---
DATE OF ADMISSION: 06/08/2017 DATE OF DISCHARGE: 06/19/2017 DISCHARGE DIAGNOSIS: Rehabilitation of incomplete quadriparesis status post decompression of C3-6 cervical levels with C3-6 cervical laminectomy and multi-root decompressions on 06/06/2017 for cervical spinal stenosis with myelopathy, patient in an incomplete central cord type of pattern. HISTORY OF THE PRESENT ILLNESS: The patient is a 71-year-old white female who is right-handed with some mental retardation and has been developing progressive pain in her neck with weakness and numbness down the upper extremity, greater on the left than the right upper extremity. She was found to have cervical compression, radiculopathy and was assessed by Dr. Lucas who felt that decompressive surgery was her best option. The patient and her caregivers agreed , and the patient admitted and had decompression surgery on 06/06/2017. The patient did well initially and was transferred to the acute rehabilitation unit on 06/08/2017. Her neuro rehab with neuromuscular facilitation of her bilateral upper extremity but also some training and care for her neurogenic bowel and bladder symptoms. PAST MEDICAL HISTORY: Includes: Cervical stenosis. Stage III chronic kidney disease. Gout. Dyslipidemia. Mild mental retardation. Gastric reflux disease. Hypertension. ALLERGIES: CODEINE and the patient developed a fine rash when tried on URECHOLINE to try and stimulate bowel and bladder function. No respiratory or other responses other than some pruritus, which cleared with the medication being removed and patient using her antihistamine. Patient with no procedures performed during this admission. DIAGNOSTIC LABORATORY DATA: Patient with moderate anemia with hemoglobin and hematocrit of 10.0 and 30.5 on admission. Some decline over time with today's hemoglobin and hematocrit being 9.2 and 27.8, which patient's primary care should continue to follow and home care nursing will be checking on the other problem which was decrease in potassium from 3.5 on admission to 3.1 on discharge. Patient given 40 mEq of K-Dur today and is to be on 10 mEq daily until she sees her primary care, Bradley Hughes, with [facility]. Patient's renal function, however, did well with BUN of 11 and creatinine of 0.97 today at discharge. HOSPITAL COURSE: Patient admitted to acute rehab unit on 06/08/2017 and started in physical and occupational therapy. On admission, patient contact guard assist in sit to stand, stand to sit and toilet-commode transfers and shower-tub transfers with standby assistance for bed mobility and contact guard for toileting and fair plus standing dynamic balance and good minus standing static and sitting dynamic balance and good sitting static balance. Patient transitioned to modified independent and sit to stand, stand to sit mobility using a rolling walker and good balance for all sitting/standing, both static and dynamic and modified independence in dressing the upper and lower body, having learned to adaptively place her cervical collar and avoid moving her neck when it is not appropriately on or in place. Physical Therapy: Patient initially doing well with a front-wheeled walker going 130 feet with contact guard assistance using the [place] collar and being able to do four steps with railings on the left and the right. She worked hard and made significant progress to being able to go over 1000 feet with a rolling walker and do greater than 10 stairs repeatedly and independent bed mobility. The incision on the neck has done well and continued to heal without significant drainage present. DISCHARGE MEDICATIONS: - gabapentin 100 mg every 8 hours for the next 15 days; further use to be decided by Dr. Lucas - potassium chloride continuous release 10 mEq daily for the next 7 days - allopurinol 100 mg daily for gout prevention - Benicar 40-12.5 mg one tablet daily - calcitriol 0.25 mcg daily - Chloe 180 mg daily for allergies. - Singulair 10 mg daily for respiratory - omeprazole 20 mg daily for gastroesophageal reflux disease (GERD). - simvastatin 20 mg daily for hyperlipidemia - tizanidine 4 mg nightly for muscle spasms - vitamin D 2000 international units daily Patient not to use more than 10 pound lifting in the upper extremities, to ambulate with a walker. She will see Dr. Lucas within the next 2 weeks and Bradley Hughes PCP within 1 week, her wound to be reassessed in orthopedics on 06/20/2017 at 3:[address] Hughes on 07/07/2017 at 10:00 a.m. Patient, however, given 15 days worth of gabapentin. Home health care will be seeing the patient and checking basic metabolic panel (BMP). Patient is to wear the collar whenever up and supported out of bed. Time spent on discharge is greater than 35 minutes. Copy To: Dr. Vinny Lucas, [facility] Bradley Hughes [facility]
[2017-06-20] MEDS ORDERED: POTASSIUM CHLORIDE 10 MEQ SR TABLET PO SCH (09:00)
== END 2017-06-19 14:30 | disposition home health service (06) | DRG 92 ==
LOC: M PM&R 11:30
PROVIDERS: ADMIT Physical Medicine & Rehabilitation; ATTEND Physical Medicine & Rehabilitation
DX: G83.82 Anterior cord syndrome (principal); K59.2 Neurogenic bowel, not elsewhere classified; G95.20 Unspecified cord compression; N18.3 Chronic kidney disease, stage 3 (moderate); M10.9 Gout, unspecified; G82.52 Quadriplegia, C1-C4 incomplete; E78.5 Hyperlipidemia, unspecified; K21.9 Gastro-esophageal reflux disease without esophagitis; I12.9 Hypertensive chronic kidney disease with stage 1 through stage 4 chronic kidney disease, or unspecified chronic kidney disease; F70 Mild intellectual disabilities; R33.9 Retention of urine, unspecified; E66.9 Obesity, unspecified; T44.1X5A Adverse effect of other parasympathomimetics [cholinergics], initial encounter; K59.00 Constipation, unspecified; J45.909 Unspecified asthma, uncomplicated; I25.10 Atherosclerotic heart disease of native coronary artery without angina pectoris; D64.9 Anemia, unspecified; E88.09 Other disorders of plasma-protein metabolism, not elsewhere classified; L27.0 Generalized skin eruption due to drugs and medicaments taken internally; Z68.29 Body mass index [BMI] 29.0-29.9, adult; Z79.899 Other long term (current) drug therapy; Z98.1 Arthrodesis status; Z88.5 Allergy status to narcotic agent

== ENCOUNTER → 2017-06-22 | Outpatient (CLI) | payer MEDICARE, BC, OTHER ==
[~2017-06-22] MED LIST changes: +GABA-279 PO; +POTA10TA67 PO
[2017-06-22 11:47] LABS: ANION GAP 9 MEQ/L (8-16); BLOOD UREA NITROGEN 16 MG/DL (7-18); CALCIUM LEVEL 8.5 MG/DL (8.8-10.2); CARBON DIOXIDE LEVEL 31 MEQ/L (21-32); CHLORIDE LEVEL 101 MEQ/L (98-107); CREATININE FOR GFR 0.92 MG/DL (0.55-1.02); GLOMERULAR FILTRATION RATE > 60.0 (>45); GLUCOSE, FASTING 122 MG/DL (80-110); POTASSIUM SERUM 3.8 MEQ/L (3.5-5.1); SODIUM LEVEL 141 MEQ/L (136-145)
== END ==
LOC: M LAB 10:25
PROVIDERS: ATTEND Physical Medicine & Rehabilitation
DX: E87.6 Hypokalemia (principal)

== ENCOUNTER → 2017-06-27 | Outpatient (REF) | payer MEDICARE, OTHER ==
[2017-06-27 16:03] LABS: CALCIUM LEVEL 8.9 MG/DL (8.8-10.2); CREATININE FOR GFR 1.12 MG/DL (0.55-1.02); GLOMERULAR FILTRATION RATE 51.3 (>45); POTASSIUM SERUM 4.1 MEQ/L (3.5-5.1)
== END ==
LOC: M SHH 15:27
PROVIDERS: ATTEND Physical Medicine & Rehabilitation
DX: E87.0 Hyperosmolality and hypernatremia (principal)

== ENCOUNTER → 2017-06-29 | Outpatient (REF) | payer MEDICARE, OTHER ==
[2017-06-29 14:00] LABS: FOLATE 12.6 NG/ML
[2017-06-29 14:01] LABS: PERCENT SATURATION 12.2 % (13.2-45.0)
== END ==
LOC: M LAB REF 13:10
PROVIDERS: ATTEND Internal Medicine Nephrology
DX: D64.9 Anemia, unspecified (principal); N39.0 Urinary tract infection, site not specified

== ENCOUNTER 2021-01-31 18:12 | Inpatient (IN) | payer MEDICARE, BC, OTHER ==
[~2021-01-31] VITALS: Ht 152.4 cm; Wt 60.7 kg
[~2021-01-31 18:12] MED LIST changes: +GABA-1171 PO; -GABA-279 PO; +MONT10TA10 PO; -MONT10TA2 PO; +OMEP1CAP73 PO; -OMEP20CA3 PO; -SIMV20TA2 PO; +SIMV20TA22 PO; +TIZA4CAP PO; -TIZA4CAP3 PO
[2021-01-31 18:49] LABS: BASO % 0.3 % (0.0-1.0); HEMATOCRIT 36.2 % (36.0-47.0); HEMOGLOBIN 11.9 g/dl (12.0-15.5); LYMPH # 0.4 10^3/uL (1.5-5.0); LYMPH % 6.2 % (24.0-44.0); MEAN CORPUSCULAR HEMOGLOBIN 29.1 pg (27.0-33.0); MEAN CORPUSCULAR HGB CONC 32.9 g/dl (32.0-36.5); MEAN CORPUSCULAR VOLUME 88.5 fl (80.0-96.0); MONO # 0.3 10^3/uL (0.0-0.8); NEUTROPHILS # 5.8 10^3/uL (1.5-8.5); PLATELET COUNT, AUTOMATED 211 10^3/uL (150-450); RED BLOOD COUNT 4.09 10^6/uL (4.00-5.40); WHITE BLOOD COUNT 6.5 10^3/uL (4.0-10.0)
[2021-01-31 18:56] LABS: INR 0.97; PROTHROMBIN TIME 13.1 SECONDS (12.5-14.3)
[2021-01-31 18:57] LABS: PARTIAL THROMBOPLASTIN TIME 26.9 SECONDS (24.2-38.5)
[2021-01-31 19:15] LABS: BLOOD UREA NITROGEN 27 MG/DL (7-18); CALCIUM LEVEL 8.8 MG/DL (8.8-10.2); CARBON DIOXIDE LEVEL 26 MEQ/L (21-32); CHLORIDE LEVEL 106 MEQ/L (98-107); CK-MB VALUE MASS < 1.0 NG/ML (<3.6); CPK CREATINE PHOSPHOKINASE 50 U/L (26-192); GLOMERULAR FILTRATION RATE > 60.0 (>39); GLUCOSE, FASTING 106 MG/DL (70-100); POTASSIUM SERUM 3.9 MEQ/L (3.5-5.1); SODIUM LEVEL 139 MEQ/L (136-145); TROPONIN I < 0.02 NG/ML (< 0.10)
--- NOTE | 2021-01-31 19:18 | REPVR ---
PROCEDURE INFORMATION: Exam: XR Chest Exam date and time: 01/31/2021 6:32 PM Age: 75 years old Clinical indication: Other: Syncope; Additional info: Syncope/near-syncope TECHNIQUE: Imaging protocol: XR of the chest. Views: 1 view. COMPARISON: No relevant prior studies available. FINDINGS: Lungs: Unremarkable. No consolidation. Pleural spaces: Unremarkable. No pleural effusion. No pneumothorax. Heart/Mediastinum: Borderline cardiomegaly. Bones/joints: The spine demonstrates moderate degenerative changes. Osteoporosis. Degenerative arthropathy both glenohumeral joints. IMPRESSION: 1. Borderline cardiomegaly. 2. No acute findings. Electronically signed by: Santana Rios On 01/31/2021 19:17:52 PM
[2021-01-31] MEDS ORDERED: MAGN1TAB39 PO (19:39)
[2021-01-31] MEDS ORDERED: HYDR200T3 PO (19:43)
[2021-01-31] MEDS ORDERED: OLME20TA2 PO (19:43)
[2021-01-31] MEDS ORDERED: FEBU40TA4 PO (19:43)
[2021-01-31] MEDS ORDERED: PANTOPRAZOLE 40MG TAB (PROTONIX) PO ONE (20:00)
[2021-01-31] MEDS ORDERED: ONDANSETRON 4MG/2ML VIAL IV ONE (20:00)
[2021-01-31] MEDS ORDERED: ATROPINE SULF 1MG/10ML SYRINGE (J0461) IV PRN (20:05)
[2021-01-31 20:19] LABS: ALBUMIN 3.4 GM/DL (3.2-5.2); ALT/SGPT 15 U/L (12-78); BILIRUBIN,DIRECT 0.2 MG/DL (0.0-0.2); BILIRUBIN,TOTAL 0.6 MG/DL (0.2-1.0); TOTAL PROTEIN 6.2 GM/DL (6.4-8.2)
[2021-01-31] MEDS ORDERED: ONDANSETRON 4MG/2ML VIAL IV PRN (20:45)
--- NOTE | 2021-01-31 20:52 | HPEPDOC ---
[facility] Medical History & Physical Date of Admission Jan 31, 2021 Date of Service: Jan 31, 2021 Attending Physician: TOM DAVISON MD History and Physical CHIEF COMPLAINT: [75 y/o female presents after several episodes of pre-syncope] HISTORY OF PRESENT ILLNESS: [This is a very pleasant 75 y/o female with a pmh of gout, ra, gerd, htn who presents to the emergency department with her cousin, Eleni, who is her [employer], who states that she has been having episodes of nausea that progress into diaphoresis, then dizziness, then a feeling of she is going to pass out. Patient states that she has never had anything like this happen before. Patient states that she does not think that she has wholly passed out and has not fallen secondary to these episodes. Patient states that she has vomited bilious appearing material during these episodes. Patient states that the episodes come on without warning and only last a minute or so before spontaneously resolving. Patient denies any chest pain or sob with the episodes. Patient states that she has been having intermittent episodes of diarrhea over the past few weeks but has not had any in the past few days. Patient and cousin originally went to urgent care for evaluation but was referred to us, on the way, EMS noted her to have a junctional appearing rhythm of around 28 during an episode. Patient, at the time of my exam, denies fevers, chills, headaches, abdominal pain, lower leg swelling. Cousin states that the patient does have a history of passing out, but has not for awhile.] PAST MEDICAL HISTORY: 1. [See HPI PAST SURGICAL HISTORY: 1. [Unspec. neck surgery]. SOCIAL HISTORY: Tobacco use:[Denies] ETOH: [Denies] Illicit drug use: [Denies] FAMILY HISTORY: Patient is unsure of any ALLERGIES: Please see below. REVIEW OF SYSTEMS: CONSTITUTIONAL: [Denies fevers, chills]. HEENT: [Brooke uri type sx]. CARDIOVASCULAR: [See HPI]. RESPIRATORY: [See HPI]. GASTROINTESTINAL: [See HPI]. GENITOURINARY: [Denies dysuria]. SKIN: [Denies rash]. MUSCULOSKELETAL: [Denies acute joint/back pain]. NEUROLOGICAL: [See HPI]. ENDOCRINE: [Denies hx of DM]. HEMATOLOGIC/LYMPHATIC: [Denies easy bruising]. HOME MEDICATIONS: Please see below. PHYSICAL EXAMINATION: VITAL SIGNS: Please see below. GENERAL APPEARANCE: [This is a 75 y/o female who is alert and oriented to all questioning. She does not appear to be in any acute distress. She has mild pallor]. HEENT: [No mass or lesion. EOMI. No scleral icterus. Nares patent. Oral mucosa moist]. CARDIOVASCULAR: [Lopez rate, regular rhythm. No murmurs, rubs, gallops]. LUNGS: [Good air flow b/l. No wheezing,rales, rhonchi]. ABDOMEN: [Soft, nontender]. MUSCULOSKELETAL: [No joint deformity]. EXTREMITIES: [No peripheral edema noted. No overlying skin changes. Pulses intact.]. NEUROLOGICAL: [Speech clear. A+Ox3. No focal deficits.]. PSYCHIATRIC: [Mood and affect appear appropriate.]. LABORATORY DATA: See below. IMAGING: [CXR: FINDINGS: Lungs: Unremarkable. No consolidation. Pleural spaces: Unremarkable. No pleural effusion. No pneumothorax. Heart/Mediastinum: Borderline cardiomegaly. Bones/joints: The spine demonstrates moderate degenerative changes. Osteoporosis. Degenerative arthropathy both glenohumeral joints. IMPRESSION: 1. Borderline cardiomegaly. 2. No acute findings. ] MICROBIOLOGY: Please see below. ASSESSMENT: [This is a very pleasant 75 y/o female with a pmh of mild mental diability, gout, ra, gerd, htn who presents to the emergency department with her cousin, Eleni, who is her [employer], who states that she has been having episodes of nausea that progress into diaphoresis, then dizziness, then a feeling of she is going to pass out. EMS noted patient to have an episode of pulse into the high 20's. Patients pulse in the ED has been anywhere from 40- 60.]. . PLAN: 1. [Symptomatic bradycardia - Dr. King, cardiology, has been consulted to evaluate need for pacemaker. Assistance and recommendations greatly appreciated. They felt, as of now, that patients symptoms may be vasovagal in nature d/t recent gi illness and vomiting, so we will monitor symptoms for now - Initial troponin in the ED has been negative - will trend - Will place patient on telemetry - will give atropine as needed for pulse <40 - Begin protonix - Zofran for nausea - encourage oral intake, patient does state she is hungry - Admit to pcu for workup 2. HTN - continue olmesartan 3. RA - continue plaquenil 4. Gout - continue febuxostat DVT prophylaxis - mechanical]. Vital Signs Vital Signs Date Time Temp Pulse Resp B/P (MAP) Pulse Ox O2 Delivery O2 Flow Rate FiO2 01/31/21 20:15 49 98 01/31/21 20:01 140/63 (88) 01/31/21 18:57 Room Air 01/31/21 18:18 20 Laboratory Data Labs 24H Laboratory Tests 2 01/31/21 18:31: Bedside Glucose (Misc Panel) 104 01/31/21 18:32: Immature Granulocyte % (Auto) 0.5, Neutrophils (%) (Auto) 89.0H, Lymphocytes (%) (Auto) 6.2L, Monocytes (%) (Auto) 4.0, Eosinophils (%) (Auto) 0.0, Basophils (%) (Auto) 0.3, Neutrophils # (Auto) 5.8, Lymphocytes # (Auto) 0.4L, Monocytes # (Auto) 0.3, Eosinophils # (Auto) 0.0, Basophils # (Auto) 0.0, Nucleated Red Blood Cells % (auto) 0.0, Prothrombin Time 13.1, Prothromb Time International Ratio 0.97, Activated Partial Thromboplast Time 26.9, Anion Gap 7L, Glomerular Filtration Rate > 60.0, Calcium Level 8.8, Total Bilirubin 0.6, Direct Bilirubin 0.2, Aspartate Amino Transf (AST/SGOT) 15, Alanine Aminotransferase (ALT/SGPT) 15, Alkaline Phosphatase 78, Total Creatine Kinase 50, Creatine Kinase MB < 1.0, Creatine Kinase MB Relative Index 2.00, Troponin I < 0.02, Total Protein 6.2L, Albumin 3.4, Albumin/Globulin Ratio 1.2, Thyroid Stimulating Hormone (TSH) 1.190 CBC/BMP Laboratory Tests 01/31/21 18:32 Home Medications Scheduled Febuxostat (Uloric) 40 Mg Tablet, 40 MG PO Q2D Hydroxychloroquine Sulfate (Hydroxychloroquine Sulfate) 200 Mg Tablet, 200 MG PO 5XW NOT MONDAY OR MONDAY Magnesium Chloride (Magnesium Chloride) 64 Mg Tablet.dr, 64 MG PO 2XWK MONDAY AND MONDAY Olmesartan Medoxomil (Olmesartan Medoxomil) 20 Mg Tablet, 20 MG PO DAILY Allergies Coded Allergies: bethanechol (Verified Allergy, Unknown, itching, 01/31/21) codeine (Verified Allergy, Unknown, n/v, 01/31/21) A-FIB/CHADSVASC A-FIB History Current/History of A-Fib/PAF?: No DONNIE CHAPPELL Jan 31, 2021 20:52
--- NOTE | 2021-01-31 22:34 | HPEPDOC ---
[facility] Medical History & Physical Date of Admission Jan 31, 2021 Date of Service: Jan 31, 2021 History and Physical Hospitalist attending physician addendum to history and physical: Discussed the case with waterworks chief engineer on-call Dr. Carrillo King who believes that the patient's bradycardic episodes are secondary to vagal stimulation from recent gastrointestinal complaints . Hog Scalder recommends telemetry monitoring for 48 hours and treating GI complaints. Vital Signs Vital Signs Date Time Temp Pulse Resp B/P (MAP) Pulse Ox O2 Delivery O2 Flow Rate FiO2 01/31/21 21:30 48 133/58 (83) 97 01/31/21 21:00 97.9 18 Room Air Laboratory Data Labs 24H Laboratory Tests 2 01/31/21 18:31: Bedside Glucose (Misc Panel) 104 01/31/21 18:32: Immature Granulocyte % (Auto) 0.5, Neutrophils (%) (Auto) 89.0H, Lymphocytes (%) (Auto) 6.2L, Monocytes (%) (Auto) 4.0, Eosinophils (%) (Auto) 0.0, Basophils (%) (Auto) 0.3, Neutrophils # (Auto) 5.8, Lymphocytes # (Auto) 0.4L, Monocytes # (Auto) 0.3, Eosinophils # (Auto) 0.0, Basophils # (Auto) 0.0, Nucleated Red Blood Cells % (auto) 0.0, Prothrombin Time 13.1, Prothromb Time International Ratio 0.97, Activated Partial Thromboplast Time 26.9, Anion Gap 7L, Glomerular Filtration Rate > 60.0, Calcium Level 8.8, Total Bilirubin 0.6, Direct Bilirubin 0.2, Aspartate Amino Transf (AST/SGOT) 15, Alanine Aminotransferase (ALT/SGPT) 15, Alkaline Phosphatase 78, Total Creatine Kinase 50, Creatine Kinase MB < 1.0, Creatine Kinase MB Relative Index 2.00, Troponin I < 0.02, Total Protein 6.2L, Albumin 3.4, Albumin/Globulin Ratio 1.2, Thyroid Stimulating Hormone (TSH) 1.190 CBC/BMP Laboratory Tests 01/31/21 18:32 Microbiology Microbiology 01/31/21 Respiratory Virus Panel (PCR) ([facility]) - Final, Complete Home Medications Scheduled Febuxostat (Uloric) 40 Mg Tablet, 40 MG PO Q2D Hydroxychloroquine Sulfate (Hydroxychloroquine Sulfate) 200 Mg Tablet, 200 MG PO 5XW NOT MONDAY OR MONDAY Magnesium Chloride (Magnesium Chloride) 64 Mg Tablet.dr, 64 MG PO 2XWK MONDAY AND MONDAY Olmesartan Medoxomil (Olmesartan Medoxomil) 20 Mg Tablet, 20 MG PO DAILY Allergies Coded Allergies: bethanechol (Verified Allergy, Unknown, itching, 01/31/21) codeine (Verified Allergy, Unknown, n/v, 01/31/21) A-FIB/CHADSVASC A-FIB History Current/History of A-Fib/PAF?: No Current PO Anticoag Therapy: No Age/Risk Factor Scoring CHADSVASC: CHADSVASC Response (Comments) Value Age Risk Factor Age 65-74 years old 1 Gender Risk Factor Female 1 Hx of CHF No 0 Hx of HTN Yes 1 Hx of Stroke/TIA/or VTE No 0 Hx of Diabetes No 0 Hx of Vascular Disease No 0 Total 3 Treatment Treatment ordered: NONE TOM DAVISON MD Jan 31, 2021 22:34
[2021-02-01] VITALS (52 sets, daily range): BP systolic 95–149; BP diastolic 51–86
--- NOTE | 2021-02-01 00:31 | IPNPDOC ---
Date Seen The patient was seen on 02/01/21. Progress Note RN called re: telemetry sinus pause for 12 seconds. pt staring into space, unresponsive, but hemodynamically stable. plan: transfer to ICU. full code pacer pads and atropine at bedside. cardiology consulted. VS, I&O, 24H, Fishbone Vital Signs/I&O Vital Signs Date Time Temp Pulse Resp B/P (MAP) Pulse Ox O2 Delivery O2 Flow Rate FiO2 01/31/21 22:43 97.9 69 18 141/66 (91) 99 Room Air Laboratory Data 24H LABS Laboratory Tests 2 01/31/21 18:31: Bedside Glucose (Misc Panel) 104 01/31/21 18:32: Immature Granulocyte % (Auto) 0.5, Neutrophils (%) (Auto) 89.0H, Lymphocytes (%) (Auto) 6.2L, Monocytes (%) (Auto) 4.0, Eosinophils (%) (Auto) 0.0, Basophils (%) (Auto) 0.3, Neutrophils # (Auto) 5.8, Lymphocytes # (Auto) 0.4L, Monocytes # (Auto) 0.3, Eosinophils # (Auto) 0.0, Basophils # (Auto) 0.0, Nucleated Red Blood Cells % (auto) 0.0, Prothrombin Time 13.1, Prothromb Time International Ratio 0.97, Activated Partial Thromboplast Time 26.9, Anion Gap 7L, Glomerular Filtration Rate > 60.0, Calcium Level 8.8, Total Bilirubin 0.6, Direct Bilirubin 0.2, Aspartate Amino Transf (AST/SGOT) 15, Alanine Aminotransferase (ALT/SGPT) 15, Alkaline Phosphatase 78, Total Creatine Kinase 50, Creatine Kinase MB < 1.0, Creatine Kinase MB Relative Index 2.00, Troponin I < 0.02, Total Protein 6.2L, Albumin 3.4, Albumin/Globulin Ratio 1.2, Thyroid Stimulating Hormone (TSH) 1.190 CBC/BMP Laboratory Tests 01/31/21 18:32 Microbiology Microbiology 01/31/21 Respiratory Virus Panel (PCR) ([facility]) - Final, Complete TOM DAVISON MD Feb 01, 2021 00:31
[2021-02-01 05:02] LABS: HEMATOCRIT 36.5 % (36.0-47.0); HEMOGLOBIN 12.2 g/dl (12.0-15.5); MEAN CORPUSCULAR HEMOGLOBIN 29.5 pg (27.0-33.0); MEAN CORPUSCULAR HGB CONC 33.4 g/dl (32.0-36.5); MEAN CORPUSCULAR VOLUME 88.2 fl (80.0-96.0); PLATELET COUNT, AUTOMATED 222 10^3/uL (150-450); RED BLOOD COUNT 4.14 10^6/uL (4.00-5.40); WHITE BLOOD COUNT 7.3 10^3/uL (4.0-10.0)
[2021-02-01 05:22] LABS: BLOOD UREA NITROGEN 28 MG/DL (7-18); CALCIUM LEVEL 8.8 MG/DL (8.8-10.2); CARBON DIOXIDE LEVEL 25 MEQ/L (21-32); CHLORIDE LEVEL 109 MEQ/L (98-107); CREATININE FOR GFR 0.92 MG/DL (0.55-1.30); GLOMERULAR FILTRATION RATE > 60.0 (>39); GLUCOSE, FASTING 95 MG/DL (70-100); MAGNESIUM LEVEL 2.1 MG/DL (1.8-2.4); SODIUM LEVEL 141 MEQ/L (136-145)
[2021-02-01] MEDS ORDERED: LR 1,000 ML IV SCH ×2 (06:00→18:55)
[2021-02-01] MEDS ORDERED: DOBUTamine HCL 500,000 MCG in IV 1 EA IV SCH (06:50)
[2021-02-01] MEDS ORDERED: DOBUTamine 500 MG/250 ML BAG IN D5W (2,000 MCG/ML) (J1250) As Ordered ONE (07:15)
[2021-02-01] MEDS ORDERED: FEBUXOSTAT 40 MG TABLET (ULORIC) PO SCH (09:00)
[2021-02-01] MEDS ORDERED: PANTOPRAZOLE 40MG VIAL (C9113 PER 1) IV SCH (09:00)
[2021-02-01] MEDS ORDERED: OLMESARTAN MEDOXOMIL 20 MG TAB (BENICAR) PO SCH (09:00)
[2021-02-01] MEDS: HYDROXYCHLOROQUINE 200 MG TAB PO SCH (09:23)
--- NOTE | 2021-02-01 11:13 | ECHO ---
ECHOCARDIOGRAM DATE OF PROCEDURE: 01/31/2021 Age: 75 Gender: Female Height: 59 inches Weight: 129 pounds Body surface area: 1.53 m2 Inpatient/ICU REFERRING PHYSICIAN: Dr. Kerri Garrison INDICATION: Radiographic borderline cardiomegaly. Abnormal EKG. Syncope. MEASUREMENTS: 2D Measurements: RV - 3.8 cm LV - 4.6 cm Septum 1.0 cm Posterior wall 1.0 cm Aortic root 3.6 cm LA 3.8 cm. LVEF 65% Doppler Measurements: AV 1.76 m/s LVOT 1.13 m/s MV-E 83, A 103 E/A ratio 0.8 Early mitral deceleration time 198 msec E prime medial 8 A prime medial 12 E prime lateral 10.2 Average E/E prime ratio 9.1/PCWP 13.2 mmHg PV - 0.99 m/s Pulmonary artery acceleration time 114 m/s RVSP 39 mmHg IVC - 1.7 cm COMMENTS: Normal sinus rhythm/sinus bradycardia without apparent intraventricular conduction disturbance. M-mode and 2-dimensional echocardiography was performed with pulse, continuous wave, color flow, and tissue Doppler studies. Normal left ventricular size, wall thickness and wall motion. Left atrial size upper limits of normal with Grade 1 LV diastolic dysfunction but currently normal estimated mean left atrial pressure. Normal right heart chamber sizes and motion with Doppler evidence to suggest mild pulmonary hypertension. Normal IVC size with marginally reduced respiratory collapse suggestive of central venous pressure upper limits of normal. Normal aortic dimensions. Very mild aortic valvular sclerosis without functional abnormality. Mild degenerative changes of the mitral valvular apparatus with no more than trace insufficiency. Normal appearing tricuspid valve with very mild insufficiency. No apparent intracardiac mass or pericardial effusion.
--- NOTE | 2021-02-01 13:06 | IPNPDOC ---
Subjective Date Seen The patient was seen on 02/01/21. Subjective Chief Complaint/HPI Overnight events reviewed. Patient had a 12 second nick requiring transfer to the ICU. She had an additional symptomatic cause around 5:34 AM. She is currently on dobutamine drip and there are plans to place a pacemaker later this afternoon Objective Physical Examination General Exam: Positive: Alert, No Acute Distress Eye Exam: Positive: Conjunctiva & lids normal, EOMI; Negative: Sclera icteric ENT Exam: Positive: Atraumatic, Mucous membr. moist/pink, Pharynx Normal Neck Exam: Positive: Supple; Negative: JVD, thyromegaly Chest Exam: Positive: Clear to auscultation, Normal air movement Heart Exam: Positive: Rate Normal, Regular Rhythm, Normal S1, Normal S2; Negative: Murmurs, Rubs Telemetry: Positive: No significant arrhythmia Abdomen Exam: Positive: Normal bowel sounds, Soft; Negative: Tenderness, Hepatospenomegaly Extremity Exam: Positive: Normal pulses; Negative: Clubbing, Cyanosis, Edema Skin Exam: Negative: Rash, Breakdown Neuro Exam: Positive: Normal Speech, Normal Tone, Sensation Intact Psych Exam: Positive: Mental status NL, Mood NL, Oriented x 3 Assessment /Plan Assessment # Symptomatic bradycardia - ppm later today - cards following - continue dobutamine - DPOA updated by me # HTN - discontinue olmesartan at this time, may resume in am # RA - continue plaquenil # Gout - continue febuxostat DVT prophylaxis - SCDs Plan/VTE VTE Prophylaxis Ordered?: No (awaiting procedure) VS, I&O, 24H, Fishbone Vital Signs/I&O Vital Signs Date Time Temp Pulse Resp B/P (MAP) Pulse Ox O2 Delivery O2 Flow Rate FiO2 02/01/21 11:30 62 132/60 (84) 99 Nasal Cannula 02/01/21 11:00 16 02/01/21 08:00 99.1 2.0 Laboratory Data 24H LABS Laboratory Tests 2 01/31/21 18:31: Bedside Glucose (Misc Panel) 104 01/31/21 18:32: Immature Granulocyte % (Auto) 0.5, Neutrophils (%) (Auto) 89.0H, Lymphocytes (%) (Auto) 6.2L, Monocytes (%) (Auto) 4.0, Eosinophils (%) (Auto) 0.0, Basophils (%) (Auto) 0.3, Neutrophils # (Auto) 5.8, Lymphocytes # (Auto) 0.4L, Monocytes # (Auto) 0.3, Eosinophils # (Auto) 0.0, Basophils # (Auto) 0.0, Nucleated Red Blood Cells % (auto) 0.0, Prothrombin Time 13.1, Prothromb Time International Ratio 0.97, Activated Partial Thromboplast Time 26.9, Anion Gap 7L, Glomerular Filtration Rate > 60.0, Calcium Level 8.8, Total Bilirubin 0.6, Direct Bilirubin 0.2, Aspartate Amino Transf (AST/SGOT) 15, Alanine Aminotransferase (ALT/SGPT) 15, Alkaline Phosphatase 78, Total Creatine Kinase 50, Creatine Kinase MB < 1.0, Creatine Kinase MB Relative Index 2.00, Troponin I < 0.02, Total Protein 6.2L, Albumin 3.4, Albumin/Globulin Ratio 1.2, Thyroid Stimulating Hormone (TSH) 1.190 02/01/21 04:48: Nucleated Red Blood Cells % (auto) 0.0, Anion Gap 7L, Glomerular Filtration Rate > 60.0, Calcium Level 8.8, Magnesium Level 2.1 CBC/BMP Laboratory Tests 01/31/21 18:32 02/01/21 04:48 Microbiology Microbiology 01/31/21 Respiratory Virus Panel (PCR) ([facility]) - Final, Complete JASON MILES MD Feb 01, 2021 13:06
[2021-02-01] MEDS ORDERED: LIDOCAINE 1% SDV 30ML VIAL As Ordered ONE (13:27)
[2021-02-01] MEDS ORDERED: ISOVUE-300 61% 50ML VIAL As Ordered ONE (13:28)
[2021-02-01] MEDS ORDERED: AMIODARONE 150MG/3ML INJ (J0282) As Ordered ONE (13:29)
[2021-02-01] MEDS ORDERED: LIDOCAINE 2% 100MG/5ML SDV (FOR ANES.) As Ordered ONE (16:14)
[2021-02-01] MEDS ORDERED: propofoL 200 MG/20 ML VIAL As Ordered ONE (16:14)
[2021-02-01] MEDS ORDERED: MIDAZOLAM INJ 2MG/2ML VIAL (J2250 PER 1MG) As Ordered ONE (16:14)
[2021-02-01] MEDS ORDERED: fentaNYL 100 MCG/2 ML INJECTION (J3010) As Ordered ONE (16:14)
[2021-02-01] MEDS ORDERED: ceFAZolin 1GM VIAL (J0690 PER 500MG) As Ordered ONE (16:31)
[2021-02-01] MEDS ORDERED: ceFAZolin 2 GM/D5W 50 ML IV BAG (J0690 PER 500MG) As Ordered ONE (16:42)
[2021-02-01] MEDS ORDERED: MAGNESIUM OXIDE 400MG TAB (MAG-OX) PO ONE (18:00)
[2021-02-01] MEDS ORDERED: traMADol 50 MG TAB PO PRN (18:10)
[2021-02-01] MEDS ORDERED: ONDANSETRON 4MG/2ML VIAL IV PRN (18:55)
--- NOTE | 2021-02-01 19:11 | REP ---
INDICATION: R/O PNEUMO. WILL CALL. COMPARISON: Yesterday at 6:26 p.m. also portable TECHNIQUE: Portable FINDINGS: Since the last examination a dual chamber bipolar pacemaker device has been placed. The leads are appropriate and contiguous. The heart is not enlarged. Lung lui are clear and stable. No acute patchy parenchymal opacities or pleural effusions have developed. There is no change in the osseous structures. IMPRESSION: Status post pacemaker device placement as described above. There is no evidence of acute cardiopulmonary disease. <Electronically signed by Souleymane Romero > 02/01/21 [id number]
--- NOTE | 2021-02-01 20:30 | ECGEPIP ---
[facility] - ED Test Date: 2021-01-31 Pat Name: DEBBIE MARINO Department: Room: [place] [address] Gender: Female Hop Picker: ANITA : [phone] Requested By: MAINOR CAMACHO Order Number: [id number] Reading MD: Gay Doe Measurements Intervals [place] Rate: 53 P: 57 ME: 136 QRS: -24 QRSD: 66 T: 12 QT: 448 QTc: 420 Interpretive Statements Sinus bradycardia Minimal voltage criteria for LVH, may be normal variant ( R in aVL ) No prior Electronically Signed on 02-01-2021 20:30:21 EDT by Gay Doe
[2021-02-02] VITALS (18 sets, daily range): BP systolic 97–167; BP diastolic 49–90
[2021-02-02] MEDS: ceFAZolin SOD 1 GM in D5W MINI-BAG PLUS 50 ML IV SCH ×3 (00:52→16:04)
[2021-02-02 05:33] LABS: BASO % 0.5 % (0.0-1.0); EOS % 0.5 % (0.0-3.0); HEMATOCRIT 33.3 % (36.0-47.0); LYMPH # 1.3 10^3/uL (1.5-5.0); LYMPH % 20.8 % (24.0-44.0); MEAN CORPUSCULAR HEMOGLOBIN 29.4 pg (27.0-33.0); MONO # 0.7 10^3/uL (0.0-0.8); MONO % 11.3 % (2.0-8.0); NEUTROPHILS # 4.3 10^3/uL (1.5-8.5); NEUTROPHILS % 66.6 % (36.0-66.0); PLATELET COUNT, AUTOMATED 194 10^3/uL (150-450); RED BLOOD COUNT 3.74 10^6/uL (4.00-5.40); WHITE BLOOD COUNT 6.4 10^3/uL (4.0-10.0)
[2021-02-02 05:37] LABS: BLOOD UREA NITROGEN 26 MG/DL (7-18); CALCIUM LEVEL 8.3 MG/DL (8.8-10.2); CARBON DIOXIDE LEVEL 27 MEQ/L (21-32); CHLORIDE LEVEL 112 MEQ/L (98-107); CREATININE FOR GFR 0.91 MG/DL (0.55-1.30); GLOMERULAR FILTRATION RATE > 60.0 (>39); GLUCOSE, FASTING 78 MG/DL (70-100); POTASSIUM SERUM 3.7 MEQ/L (3.5-5.1); SODIUM LEVEL 145 MEQ/L (136-145)
[2021-02-02] MEDS ORDERED: ceFAZolin SOD 1 GM in D5W MINI-BAG PLUS 50 ML IV ONE (06:00)
[2021-02-02] MEDS: ACETAMINOPHEN TAB 650MG DOSE (2X325MG) PO PRN ×2 (07:27→16:08)
--- NOTE | 2021-02-02 07:58 | RO ---
OPERATIVE NOTE DATE OF OPERATION: 01/31/2021 PREOPERATIVE DIAGNOSIS: 1. Recurrent syncope. 2. Sinus node dysfunction intermittent cardiac asystole. POSTOPERATIVE DIAGNOSIS: 1. Recurrent syncope. 2. Sinus node dysfunction intermittent cardiac asystole. PROCEDURE: Implantation of permanent dual-chamber pacemaker. IMPLANTING VENEER LATHE OPERATOR: Carrillo King M.D. GRAIN ELEVATOR MAN: ANESTHESIOLOGIST: Dr. Uriostegui ANESTHESIA: Monitored local anesthesia. 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 He is followed by YAHIR Parnell for multiple medical problems including rheumatoid arthritis, cervical disc disease, gout, gastroesophageal reflux, hypertension, and allergic rhinitis. She is not previously known to have any cardiac problems. For the past week or so, she has been experiencing recurrent episodes of nausea, diaphoresis, near syncope and occasional syncopal spells. On occasion, she has had loose bowel movements and vomiting. Because of more severe episodes, an ambulance was called on January 31, 2021. En route to the hospital, the patient had recurrence of a typical episode and on the bedside monitor, the EMT reports having noticed junctional rhythm with a rate of 28 beats per minute. While at [facility] ER, she had recurrent episodes associated with pauses of 5-10 seconds. Initially it was felt that these pauses were a reaction to her GI upset. She was admitted to telemetry and given proton pump inhibitor therapy and Zofran. Unfortunately she continued to have episodes with an episode earlier this morning of up to 20 seconds of cardiac asystole with associated syncope. In light of this, we recommended permanent dual chamber pacemaker implantation. Customarily, the patient claims to be fairly independent and active even with her serious cervical disc disease post-laminectomy in 2017 and rheumatoid arthritis. She walks for at least 1/2 hour everyday. She denies any problems with chest pain or shortness of breath. She has never been told her blood pressure was elevated and has not been aware of any palpitations. She has ongoing left arm numbness following her laminectomy. She is not receiving any negative chronotropic therapies or medications associated with sinus node or AV node conduction problems. She is a nonsmoker and avoids alcohol. No history of thyroid dysfunction. PHYSICAL EXAM: Pleasant, elderly lady who lay comfortably with the head of the bed elevated 30 degrees. Heart rate on low dose dobutamine IV infusion was 66 BPM, blood pressure 137/61 supine. Respiratory rate was 16 with O2 saturation 94% on room air. She was afebrile. Weight 60.7 kilograms, height 60 inches, BMI 26.1. No pallor or icterus. No central cyanosis. Bright, alert and orientated and gave a lucid history. Eye, facial, and extremity movements were symmetrical and normal. Trachea was midline. Thyroid was not enlarged. Neck veins were not elevated. Normal chest configuration and chest expansion. Good air entry of both lung lui with no abnormal pulmonary adventitious sounds. Apical impulse medial to the midclavicular line, fifth intercostal space. Normal S-1 and S-2. Unable to detect S-2 splitting. No S-4 gallop or murmur. Her abdomen is currently soft with no apparent hepatosplenomegaly. Normal bowel sounds. Peripheral pulses were symmetrical and normal and there was no pedal edema. LABORATORY DATA: Normal complete blood count with hemoglobin 12.2, normal platelet count, PT and PTT. Normal electrolytes with potassium 4.0, BUN 28, creatinine 0.9, GFR greater than 60, random glucose 95. Magnesium level 2.1, calcium 8.8, TSH 1.19. Lyme titer is pending at this time. Nasopharyngeal was negative for COVID. Portable upright chest x-ray, January 31, 2021 was reported as showing possible borderline cardiomegaly. Clear lung lui with no infiltrate or pleural effusion or pneumothorax. Mild osteoporosis with some degenerative changes of her shoulders and spine. EKG on admission showed sinus bradycardia at 53 BPM with leftward axis and slightly prominent voltage in AVL. The tracing was otherwise normal. Followup study later the same day showed no significant change. process maintenance technician preop at 5:33 a.m. this morning showed sinus bradycardia followed by cardiac asystole with 15 seconds of cardiac arrest. DESCRIPTION OF PROCEDURE: With the patient in the fasting state, having received Ancef 2 gm IV premedication and having signed informed consent, she was taken to the operating theater. Numerous skin electrodes were applied to facilitate continuous electrocardiographic monitoring. The left subclavian region was prepped and draped in the usual fashion. The skin was infiltrated with 1% Xylocaine and the left subclavian/axillary vein was catheterized using a micropuncture technique. A 5 cm linear incision was made several cm below and parallel to the left clavicle. Dissection was carried down to the level of the pectoralis fascia and a pocket was fashioned below the level of the incision line. Two bipolar screw-in active fixation steroid-eluting pacing leads were then positioned to the right ventricular apex and high right atrial appendage under fluoroscopic and electrocardiographic control. The ventricular lead ([employer], model #[id number], serial #[id number]) measurements were focal and stimulation threshold 0.7V/0.4 ms/impedance 566 ohms. The R wave amplitude measured 5.3 mv. The atrial lead ([employer], model #[id number]/46, serial #[id number]) measurements were focal and stimulation threshold initially 2.4 volts at 0.4 milliseconds but by the time the procedure was completed, this had dropped to 0.7 volts at 0.4 milliseconds. Lead impedance was stable at 430 ohms. The P wave amplitude measured 2.6 mV. These leads were secured in position with sleeve sutured at their insertion site. They were then connected to a dual-chamber pulse generator ([employer] compatible, model #JS3832, serial number [id number]) and appropriate DDD pacing was documented. The generator was placed in the pocket and secured in position with a suture through the upper right-hand corner of the epoxy header. The subcutaneous tissues were approximated using a running chromic suture and the skin was closed using juan. A dry dressing was applied and the patient was returned to the recovery room in good condition. ESTIMATED BLOOD LOSS: 10 ml COMPLICATIONS: No apparent complications. Postoperative portable upright chest x-ray showed good lead position with no pneumothorax. Postoperative EKG showed consistent atrial lead paced rhythm at 60 BPM but was otherwise normal. Our plan is to monitor her overnight and administer an additional three doses of Ancef 1 gm IV q.8h. We are cautiously optimistic that she will be able to be discharged tomorrow morning. CECI
--- NOTE | 2021-02-02 08:21 | REP ---
INDICATION: Post pacer implant. COMPARISON: Comparison study February 01, 2021. TECHNIQUE: Two views.. FINDINGS: A bipolar pacemaker is inserted into the right heart view of the left side. Skin juan are seen above the power plant on the left. Heart is borderline in size. Pulmonary vasculature is not increased. Pleural angles are sharp. There is no evidence of pneumothorax. No infiltrate is seen. Degenerative changes are noted in the thoracic spine. Patient is status post cervical spine fusion. IMPRESSION: Pacemaker in place. Borderline heart size. Otherwise no acute disease.. <Electronically signed by Eddie León > 02/02/21 0316
[2021-02-02] MEDS: HYDROXYCHLOROQUINE 200 MG TAB PO SCH (08:49)
[2021-02-02] MEDS ORDERED: OMEPRAZOLE 20 MG CAP PO SCH (09:00)
[2021-02-02] MEDS ORDERED: OLMESARTAN MEDOXOMIL 20 MG TAB (BENICAR) PO SCH (09:00)
[2021-02-02 15:08] LABS: Lyme Disease IgG/IgM Antibodie <0.91 ISR (0.00-0.90); Lyme Disease IgM Ab Quantitati <0.80 index (0.00-0.79)
--- NOTE | 2021-02-02 18:08 | DS.PDOC ---
Discharge Summary General Date of Admission Jan 31, 2021 at 19:51 Date of Discharge 02/02/21 Attending Physician: Kvng Ricardo MD Specialist/Consultants Involve: Carrillo King Discharge Summary PROCEDURES PERFORMED DURING STAY: [None]. ADMITTING DIAGNOSES: 1. . DISCHARGE DIAGNOSES: 1. . COMPLICATIONS/CHIEF COMPLAINT: Symtomatic Bradycardia. HISTORY OF PRESENT ILLNESS: . HOSPITAL COURSE: . DISCHARGE MEDICATIONS: Please see below. ALLERGIES: Please see below. PHYSICAL EXAMINATION ON DISCHARGE: VITAL SIGNS: Please see below. GENERAL: HEENT: NECK: CARDIOVASCULAR EXAMINATION: RESPIRATORY EXAMINATION: ABDOMINAL EXAMINATION: EXTREMITIES: SKIN: NEUROLOGICAL EXAMINATION: PSYCHIATRIC EXAMINATION: LABORATORY DATA: Please see below. IMAGING: PROGNOSIS: ACTIVITY: [As tolerated]. DIET: DISCHARGE PLAN: DISPOSITION: . DISCHARGE INSTRUCTIONS: 1. . ITEMS TO FOLLOWUP ON ON OUTPATIENT: 1. . DISCHARGE CONDITION: [Stable]. TIME SPENT ON DISCHARGE: minutes. Vital Signs/I&Os Vital Signs Date Time Temp Pulse Resp B/P (MAP) Pulse Ox O2 Delivery O2 Flow Rate FiO2 02/02/21 11:54 97.6 60 16 136/63 (87) 98 Room Air 02/02/21 06:00 2.0 I&O- Last 24 Hours up to 6 AM 02/02/21 06:00 Intake Total 650 ml Output Total 160 ml Balance 490 ml Laboratory Data Labs 24H Laboratory Tests 2 02/02/21 04:56: Immature Granulocyte % (Auto) 0.3, Neutrophils (%) (Auto) 66.6H, Lymphocytes (%) (Auto) 20.8L, Monocytes (%) (Auto) 11.3H, Eosinophils (%) (Auto) 0.5, Basophils (%) (Auto) 0.5, Neutrophils # (Auto) 4.3, Lymphocytes # (Auto) 1.3L, Monocytes # (Auto) 0.7, Eosinophils # (Auto) 0.0, Basophils # (Auto) 0.0, Nucleated Red Blood Cells % (auto) 0.0, Anion Gap 6L, Glomerular Filtration Rate > 60.0, Calcium Level 8.3L CBC/BMP Laboratory Tests 02/02/21 04:56 Microbiology Microbiology 01/31/21 Respiratory Virus Panel (PCR) (BRIAN) - Final, Complete Discharge Medications Scheduled Febuxostat (Uloric) 40 Mg Tablet, 40 MG PO Q2D, (Reported) Hydroxychloroquine Sulfate (Hydroxychloroquine Sulfate) 200 Mg Tablet, 200 MG PO 5XW, (Reported) NOT MONDAY OR MONDAY Magnesium Chloride (Magnesium Chloride) 64 Mg Tablet.dr, 64 MG PO 2XWK, (Reported) MONDAY AND MONDAY Olmesartan Medoxomil (Olmesartan Medoxomil) 20 Mg Tablet, 20 MG PO DAILY, (Reported) Allergies Coded Allergies: bethanechol (Verified Allergy, Unknown, itching, 01/31/21) codeine (Verified Allergy, Unknown, n/v, 01/31/21) Kvng Ricardo MD Feb 02, 2021 18:08
--- NOTE | 2021-02-02 22:00 | ECGEPIP ---
[facility] Test Date: 2021-02-02 Pat Name: DEBBIE MARINO Department: Room: [place] [address] Gender: Female Optometry Professor: celsa : 1945 Requested By: Carrillo King Order Number: [id number] Reading MD: Jeremy Schilling Measurements Intervals [place] Rate: 60 P: CT: 166 QRS: -20 QRSD: 76 T: 32 QT: 428 QTc: 428 Interpretive Statements Atrial-paced rhythm Minimal voltage criteria for LVH, may be normal variant ( R in aVL ) Artifact in the baseline Last tracing on 01/31/21 at 18:14. There was no pacing activities Electronically Signed on 02-02-2021 22:00:22 EDT by Jeremy Schilling
== END 2021-02-02 18:21 | disposition home or self-care (01) | DRG 244 ==
LOC: EDBD 18:12 → M ED 18:12 → M ED INP 19:51 → M PCU 22:30 → M ICU 02-01 01:08
PROVIDERS: ADMIT General Practice; ATTEND Family Medicine
PROC: 02H63JZ Insertion of Pacemaker Lead into Right Atrium, Percutaneous Approach (ICD-10-PCS; 2021-02-01)
PROC: 02HK3JZ Insertion of Pacemaker Lead into Right Ventricle, Percutaneous Approach (ICD-10-PCS; 2021-02-01)
PROC: 0JH606Z Insertion of Pacemaker, Dual Chamber into Chest Subcutaneous Tissue and Fascia, Open Approach (ICD-10-PCS; principal; 2021-02-01 07:17)
DX: I49.5 Sick sinus syndrome (principal); M10.9 Gout, unspecified; M06.9 Rheumatoid arthritis, unspecified; K21.9 Gastro-esophageal reflux disease without esophagitis; I11.9 Hypertensive heart disease without heart failure; R00.1 Bradycardia, unspecified; Z79.899 Other long term (current) drug therapy; Z88.5 Allergy status to narcotic agent; Z88.8 Allergy status to other drugs, medicaments and biological substances; Z20.822 Contact with and (suspected) exposure to COVID-19; M50.80 Other cervical disc disorders, unspecified cervical region; Z98.1 Arthrodesis status

== ENCOUNTER → 2021-02-26 | Outpatient (CLI) | payer MEDICARE, OTHER ==
[~2021-02-26] MED LIST changes: +FEBU40TA4 PO; +HYDR200T3 PO; +MAGN1TAB39 PO; +OLME20TA2 PO
== END ==
LOC: M LABSMTC 11:03
PROVIDERS: ATTEND Anesthesiology
DX: Z01.818 Encounter for other preprocedural examination (principal); Z11.52 Encounter for screening for COVID-19

== ENCOUNTER 2021-03-03 10:40 | Day surgery (SDC) | payer MEDICARE, BC, OTHER ==
[~2021-03-03] VITALS: Ht 152.4 cm; Wt 55.3 kg
[~2021-03-03 10:40] MED LIST changes: +NS 1,000 ML IV ONE
[2021-03-03] MEDS ORDERED: LIDOCAINE 2% 100MG/5ML SDV (FOR ANES.) As Ordered ONE (11:37)
[2021-03-03] MEDS ORDERED: propofoL 200 MG/20 ML VIAL As Ordered ONE (11:37)
--- NOTE | 2021-03-03 12:07 | ROOR ---
Patient Name: Mona Whitley Procedure Date: 03/03/2021 10:23 AM Date of : 1945 Age: 75 Room: [facility] Gender: Female Note Status: Finalized Procedure: Colonoscopy Indications: Chronic diarrhea Providers: Cheng Graham Jr, MD Referring MD: YAHIR WALLIS Requesting Provider: Medicines: Propofol per Anesthesia Complications: No immediate complications. Procedure: Pre-Anesthesia Assessment: - Prior to the procedure, a History and Physical was performed, and patient medications and allergies were reviewed. The patient is competent. The risks and benefits of the procedure and the sedation options and risks were discussed with the patient. All questions were answered and informed consent was obtained. Patient identification and proposed procedure were verified by the physician and the nurse in the pre-procedure area and in the procedure room. Mental Status Examination: alert and oriented. Airway Examination: normal oropharyngeal airway and neck mobility. Respiratory Examination: clear to auscultation. CV Examination: normal. ASA Grade Assessment: II - A patient with mild systemic disease. After reviewing the risks and benefits, the patient was deemed in satisfactory condition to undergo the procedure. The anesthesia plan was to use moderate sedation / analgesia (conscious sedation). Immediately prior to administration of medications, the patient was re-assessed for adequacy to receive sedatives. The heart rate, respiratory rate, oxygen saturations, blood pressure, adequacy of pulmonary ventilation, and response to care were monitored throughout the procedure. The physical status of the patient was re-assessed after the procedure. The Colonoscope was introduced through the anus and advanced to the cecum, identified by appendiceal orifice and ileocecal valve. The colonoscopy was performed without difficulty. The patient tolerated the procedure well. Findings: The rectum, recto-sigmoid colon, descending colon, transverse colon, appendiceal orifice and ileocecal valve appeared normal. Two polyps were found in the ascending colon and cecum. The polyps were small in size. These polyps were removed with a hot snare. Resection was complete, but the polyp tissue was only partially retrieved. A medium polyp was found in the descending colon. The polyp was pedunculated. The polyp was removed with a hot snare. Resection was complete, but the polyp tissue was only partially retrieved. Impression: - The rectum, recto-sigmoid colon, descending colon, transverse colon, appendiceal orifice and ileocecal valve are normal. - Two small polyps in the ascending colon and in the cecum, removed with a hot snare. Complete resection. Partial retrieval. - One medium polyp in the descending colon, removed with a hot snare. Complete resection. Partial retrieval. Recommendation: - Discharge patient to home (ambulatory). - Repeat colonoscopy in 5 years for surveillance. Procedure Code(s): --- Professional --- 16414, Colonoscopy, flexible; with removal of tumor(s), polyp(s), or other lesion(s) by snare technique Diagnosis Code(s): --- Professional --- K63.5, Polyp of colon K52.9, Noninfective gastroenteritis and colitis, unspecified CPT copyright 2019 [employer]. All rights reserved. The codes documented in this report are preliminary and upon performance architect review may be revised to meet current compliance requirements. Cheng Graham MD Cheng Graham Jr, MD 03/03/2021 12:06:49 PM Electronically signed by Cheng Graham Jr, MD Number of Addenda: 0 Note Initiated On: 03/03/2021 10:23 AM Estimated Blood Loss: Estimated blood loss: none.
[2021-03-03 12:29] VITALS: BP 126/72
== END 2021-03-03 12:30 | disposition home or self-care (01) ==
LOC: M OPP 10:40
PROVIDERS: ATTEND Surgery
DX: K52.9 Noninfective gastroenteritis and colitis, unspecified (principal); D12.6 Benign neoplasm of colon, unspecified; I12.9 Hypertensive chronic kidney disease with stage 1 through stage 4 chronic kidney disease, or unspecified chronic kidney disease; E78.5 Hyperlipidemia, unspecified; M10.9 Gout, unspecified; K21.9 Gastro-esophageal reflux disease without esophagitis; M19.90 Unspecified osteoarthritis, unspecified site; N18.30 Chronic kidney disease, stage 3 unspecified; Z95.0 Presence of cardiac pacemaker; Z88.5 Allergy status to narcotic agent; Z88.8 Allergy status to other drugs, medicaments and biological substances; Z79.899 Other long term (current) drug therapy

== ENCOUNTER → 2021-06-10 | Outpatient (CLI) | payer MEDICARE, BC, OTHER ==
[~2021-06-10] MED LIST changes: -MONT10TA10 PO; +MONT10TA97 PO; -NS 1,000 ML IV ONE
[2021-06-10 13:41] LABS: FOLATE 15.4 NG/ML
== END ==
LOC: M PLALAB 11:30
PROVIDERS: ATTEND Psychiatry & Neurology Neurology
DX: E53.8 Deficiency of other specified B group vitamins (principal)

== ENCOUNTER → 2022-06-09 | Outpatient (CLI) | payer MEDICARE, BC, OTHER ==
[~2022-06-09] MED LIST changes: -BENI40TA28 PO; +FEXO-117 PO; -FEXO180T58 PO; +OLME-2 PO
[2022-06-09 17:30] LABS: FOLATE > 24.00 NG/ML (>5.4)
[2022-06-09 17:33] LABS: VITAMIN B12 LEVEL 369 PG/ML (211-911)
== END ==
LOC: M PLALAB 11:58
PROVIDERS: ATTEND Psychiatry & Neurology Neurology
DX: E53.8 Deficiency of other specified B group vitamins (principal)

== ENCOUNTER → 2023-08-14 | Outpatient (CLI) | payer MEDICARE, BC, OTHER ==
[~2023-08-14] MED LIST changes: -HYDR200T3 PO; +HYDR200T46 PO; -OLME20TA2 PO; +OLME20TA50 PO
[2023-08-14 13:10] LABS: ALBUMIN 3.5 G/DL (3.2-5.2); ALKALINE PHOSPHATASE 69 U/L (46-116); ALT/SGPT < 9 U/L (7.0-40); AST/SGOT 19 U/L (<34); BILIRUBIN,DIRECT 0.2 MG/DL (<0.4); BILIRUBIN,TOTAL 0.5 MG/DL (0.3-1.2); CHOLESTEROL LEVEL 189 MG/DL (<200); CHOLESTEROL RISK RATIO 3.14 (<5); HDL CHOLESTEROL 60.1 MG/DL (>40); LDL CHOLESTEROL 102.5 MG/DL (<100); NON-HDL-C 128.9 MG/DL; TOTAL PROTEIN 6.3 G/DL (5.7-8.2); TRIGLYCERIDES LEVEL 132 MG/DL (<150)
== END ==
LOC: M WUC 10:46
PROVIDERS: ATTEND Physician Assistant
DX: I10 Essential (primary) hypertension (principal); E78.5 Hyperlipidemia, unspecified

== ENCOUNTER → 2024-08-13 | Outpatient (CLI) | payer MEDICARE, BC ==
[~2024-08-13] MED LIST changes: -FEXO-117 PO; +FEXO-193 PO
== END ==
LOC: M RAD 13:16
PROVIDERS: ATTEND Nurse Practitioner Family
DX: N18.31 Chronic kidney disease, stage 3a (principal)

== ENCOUNTER → 2024-08-21 | Outpatient (CLI) | payer MEDICARE, BC ==
[2024-08-21 11:37] LABS: HDL CHOLESTEROL 60.9 MG/DL (>40); LDL CHOLESTEROL 94.3 MG/DL (<100); NON-HDL-C 122.1 MG/DL
== END ==
LOC: M WUC 08:33
PROVIDERS: ATTEND Registered Nurse
DX: Z13.220 Encounter for screening for lipoid disorders (principal); E78.00 Pure hypercholesterolemia, unspecified

== ENCOUNTER → 2024-11-05 | Outpatient (CLI) | payer MEDICARE, BC | LOC: M CARPUL 14:56 | PROVIDERS: ATTEND Registered Nurse | DX: I08.0 Rheumatic disorders of both mitral and aortic valves (principal) ==

== ENCOUNTER → 2024-11-06 | Outpatient (CLI) | payer MEDICARE, BC | LOC: M RAD 13:46 | PROVIDERS: ATTEND Registered Nurse | DX: J90 Pleural effusion, not elsewhere classified (principal) ==

== ENCOUNTER → 2024-11-12 | Outpatient (CLI) | payer MEDICARE, BC ==
[2024-11-12 14:27] LABS: BASO % 0.7 % (0.0-1.0); EOS # 0.1 10^3/uL (0.0-0.5); EOS % 1.5 % (0.0-3.0); HEMATOCRIT 38.2 % (36.0-47.0); HEMOGLOBIN 12.4 g/dl (12.0-15.5); LYMPH # 0.9 10^3/uL (1.5-5.0); LYMPH % 15.6 % (24.0-44.0); MEAN CORPUSCULAR HEMOGLOBIN 29.6 pg (27.0-33.0); MEAN CORPUSCULAR HGB CONC 32.5 g/dl (32.0-36.5); MEAN CORPUSCULAR VOLUME 91.2 fl (80.0-96.0); MONO # 0.5 10^3/uL (0.0-0.8); MONO % 9.4 % (2.0-8.0); NEUTROPHILS % 72.4 % (36.0-66.0); PLATELET COUNT, AUTOMATED 225 10^3/uL (150-450); RED BLOOD COUNT 4.19 10^6/uL (4.00-5.40); WHITE BLOOD COUNT 5.5 10^3/uL (4.0-10.0)
[2024-11-12 14:48] LABS: FREE T4 1.52 NG/DL (0.89-1.76); THYROID STIMULATING HORMONE 1.187 uIU/ML (0.55-4.78)
[2024-11-12 14:50] LABS: ALBUMIN 3.5 G/DL (3.2-5.2); BILIRUBIN,TOTAL 0.4 MG/DL (0.3-1.2); CALCIUM LEVEL 8.9 MG/DL (8.3-10.6); CREATININE FOR GFR 0.91 MG/DL (0.55-1.30); FOLATE 12.2 NG/ML (>5.4); GLOMERULAR FILTRATION RATE 65.4 (>39); POTASSIUM SERUM 4.2 MMOL/L (3.5-5.1); TOTAL PROTEIN 6.1 G/DL (5.7-8.2)
== END ==
LOC: M WUC 12:42
PROVIDERS: ATTEND Psychiatry & Neurology Neurology
DX: E53.8 Deficiency of other specified B group vitamins (principal); E07.9 Disorder of thyroid, unspecified